=== PATIENT | female | born 1950 | race Caucasian/White ===

== ENCOUNTER → 2017-06-14 | Outpatient (CLI) | payer OTHER, MEDICAID ==
[2012-06-11 09:17] VITALS: BP 138/85
== END ==
LOC: RAD 13:57
PROVIDERS: ATTEND Internal Medicine Cardiovascular Disease
DX: R07.2 Precordial pain (principal)
CPT/HCPCS: 93306

== ENCOUNTER 2017-07-13 19:28 | Inpatient (IN) | payer OTHER, MEDICAID ==
--- NOTE | 2017-07-13 19:51 | DR.GENAD ---
HPI - HPI Comment HPI Comment: PATIENT NOTED A POOL OF BLOOD COME OUT OF THE VAGINAL VAULT WHEN GOT UP FROM A CHAIR. PACIENT TAKES ELIQUIST. BRILLITA AND ASPRIN. HAD CARDIAC CATH 2 WEEKS AGO AND SUSTAIN SWELLING OF LT THIGH, THIS IS STILL SWOLLEN AND PAINFUL. NO TRAUMA. - Complaint/Symptoms Chief Complaint Doctors Comments: VAGINAL HEMORRHAGE, DIZZINESS AND WEAKNESS NOTED TODAY. - Nurses notes reviewed Nurses Notes Review: Yes - Source History Provided: Patient - Mode of Arrival Mode of Arrival: Stretcher - Timing Came on: Suddenly - Duration Duration: Constant Duration: Minutes, Hours - Severity Severity: Moderate PMH - PMH Surgical History: Ortho Surgery - Family History Family Medical History: Cancer, [place], Hypertension ROS - Review of Systems Constitutional: No Symptoms Reported Eyes: No Symptoms Reported ENTM: No Symptoms Reported Respiratoy: Short of Breath (ON EXERTION) Cardiovascular: No Symptoms Reported Gastrointestinal/Abdominal: No Symptoms Reported Genitourinary: No Symptoms Reported Neurological: No Symptoms Reported Musculoskeletal: Leg (BRUISING LEFT UPPER THIGH.) Integumentary: Bruises (LT THIGH) Hematologic/Lymphatic: Easy Bleeding, Easy Bruising Endocrine: No Symptoms Reported All Other Systems: Reviewed and Negative PE - Vital Signs Vitals: Temperature 98.1 F Pulse Rate 80 Respiratory Rate 16 Blood Pressure [Right Arm] 151/59 Blood Pressure [Left Arm] 138/85 Blood Pressure 170/72 O2 Sat by Pulse Oximetry 98 - General Limitations: No Limitations General Appearance: Alert - Head Head Exam: Normal Inspection - Eyes Eye exam: Normal Appearance - ENT ENT Exam: Normal External Ear Exam External Ear Exam: Normal External Inspection TM/Canal Exam: Bilateral Normal Nose Exam: Normal Nose Exam Mouth Exam: Normal Inspection Throat Exam: Normal Inspection - Neck Neck Exam: Trachea Midline - Chest Chest Inspection: Symmetric Chest Wall Rise - Respiratory Respiratory Exam: Normal Lung Sounds Bilat Respiratory Exam: Bilateral Clear to Auscultation - Cardiovascular Cardiovascular Exam: Regular Rate, Normal Rhythm, Normal Heart Sounds - Abdominal Exam Abdominal Exam: Normal Bowel Sounds, Soft. negative: Tenderness - Extremities Extremities Exam: Tenderness (AND SWELLING AND BRUISING LEFT UPPER THIGH.) - Back Back Exam: Normal Inspection - Neurologic Neurological Exam: Alert, Oriented X3 - Psychiatric Psychiatric Exam: Normal Affect, Normal Mood - Skin Skin Exam: Erythema MDM - Differential Diagnosis Differential Diagnosis: VAGINAL BLEEDING, LEFT THIGH PAIN AND SWELLING. Course - Treatment Treatment: SEE ORDERS. - Education/Counseling Education/Counseling: Patient ROR - Labs Reviewed Result Diagrams: 07/13/17 20:01 07/13/17 20:01 Laboratory: WBC 6.8 X10^3/uL (3.6-10.0) 07/13/17 20: RBC 2.85 X10^6/uL (3.5-5.4) L 07/13/17 20:01 Hgb 8.7 g/dL (12.0-16.0) L 07/13/17 20: Hct 25.9 % (36.0-47.0) L 07/13/17 20: MCV 90.6 fL (80.0-100.0) 07/13/17 20: MCH 30.6 pg (27.0-34.0) 07/13/17 20: MCHC 33.8 g/dL (33.0-35.0) 07/13/17 20: RDW 15.6 % (11.6-16.5) 07/13/17 20: Plt Count 276 X10^3/uL (150.0-450.0) 07/13/17 20:01 MPV 7.6 fL (7.4-11.0) 07/13/17 20:01 Neut % (Auto) 71.4 % (42.0-75.0) 07/13/17 20: Lymph % (Auto) 16.2 % (21.0-51.0) L 07/13/17 20: [place] % (Auto) 6.2 % (0.0-13.0) 07/13/17 20: Eos % (Auto) 5.6 % (0.9-2.9) H 07/13/17 20:01 Baso % (Auto) 0.6 % (0.2-1.0) 07/13/17 20:01 Neut # (Auto) 4.8 x10^3/uL (2.2-4.8) 07/13/17 20:01 Lymph # (Auto) 1.1 X10^3/uL (1.3-2.9) L 07/13/17 20:01 [place] # (Auto) 0.4 x10^3/uL (0.3-0.8) 07/13/17 20:01 Eos # (Auto) 0.4 x10^3/uL (0.0-0.2) H 07/13/17 20:01 Baso # (Auto) 0.0 X10^3/uL (0.0-0.1) 07/13/17 20:01 Absolute Nucleated RBC 0.0 /100WBC 07/13/17 20:01 INR Target Range - 07/13/17 20:01 INR 1.31 (0.8-1.3) H 07/13/17 20:01 APTT 40.9 SECONDS (22.9-36.5) H 07/13/17 20:01 PTT Comment - 07/13/17 20:01 Sodium 137 mmol/L (136-145) 07/13/17 20:01 Corrected Sodium 138 mmol/L (136-145) 07/13/17 20:01 Potassium 3.5 mmol/L (3.5-5.1) 07/13/17 20:01 Chloride 101 mmol/L (98-107) 07/13/17 20:01 Carbon Dioxide 28.2 mmol/L (21-32) 07/13/17 20:01 BUN 16 mg/dL (7-18) 07/13/17 20:01 Creatinine 0.98 mg/dL (0.55-1.02) 07/13/17 20:01 Est GFR (MDRD) Af Amer > 60 (>60) 07/13/17 20:01 Est GFR (MDRD) Non-Af > 60 (>60) 07/13/17 20:01 Glucose 138 mg/dL (65-99) H 07/13/17 20:01 Calcium 8.6 mg/dL (8.5-10.1) 07/13/17 20:01 Corrected Calcium 9.5 mg/dL (8.5-10.1) 07/13/17 20:01 Iron 52 ug/dL (50-175) 07/13/17 20:01 Transferrin 193 mg/dL (202-364) L 07/13/17 20:01 Ferritin 219 ng/mL (8-252) 07/13/17 20:01 Total Bilirubin 1.60 mg/dL (0.2-1.0) H 07/13/17 20:01 AST 31 Units/L (15-37) 07/13/17 20:01 ALT 22 Units/L (12-78) 07/13/17 20:01 Alkaline Phosphatase 95 Units/L (46-116) 07/13/17 20:01 Total Protein 6.7 g/dL (6.4-8.2) 07/13/17 20:01 Albumin 2.9 g/dL (3.4-5.0) L 07/13/17 20:01 Globulin 3.8 g/dL (2.5-4.5) 07/13/17 20:01 Albumin/Globulin Ratio 0.8 Ratio (1.1-2.1) L 07/13/17 20:01 Vitamin B12 688 pg/mL (193-986) 07/13/17 20:01 Folate 13.5 ng/mL (>8.6) 07/13/17 20:01 Specimen Type Random urine 07/13/17 22:12 Urine Color Bloody (YELLOW) 07/13/17 22:12 Urine Appearance Slightly hazy (CLEAR) 07/13/17 22:12 Urine pH 6.5 (5.0 - 8.0) 07/13/17 22:12 Ur Specific [place] 1.010 (1.000-1.030) 07/13/17 22:12 Urine Protein 2+ (NEGATIVE) 07/13/17 22:12 Urine Glucose (UA) Negative (NEGATIVE) 07/13/17 22:12 Urine Ketones Negative (NEGATIVE) 07/13/17 22:12 Urine Occult Blood 5+ (NEGATIVE) 07/13/17 22:12 Urine Nitrite Negative (NEGATIVE) 07/13/17 22:12 Urine Bilirubin Negative (NEGATIVE) 07/13/17 22:12 Urine Urobilinogen Normal (NORMAL) 07/13/17 22:12 Ur Leukocyte Esterase Negative (NEGATIVE) 07/13/17 22:12 Urine RBC Tntc /HPF (NONE SEEN) 07/13/17 22:12 Urine WBC None seen /HPF (NONE SEEN) 07/13/17 22:12 Ur Squamous Epith Cells Rare /HPF (NEGATIVE) 07/13/17 22:12 Amorphous Sediment Trace /HPF (NEGATIVE) 07/13/17 22:12 Urine Bacteria Trace /HPF (NEGATIVE) 07/13/17 22:12 Ur Culture Indicated? No/not indicated 07/13/17 22:12 Blood Type O POSITIVE 07/13/17 21:01 Antibody Screen Negative 07/13/17 21:01 - Diagnosis Discharge Problem: Vaginal hemorrhage, Hypercoagulable state, Pain in left thigh, Dizziness - Discharge Plan Disposition: 09 ADMITTED INPATIENT Condition: Stable - Follow ups/Referrals - Instructions
[2017-07-13 20:10] LABS: BASOPHILS % (AUTO) 0.6 % (0.2-1.0); EOSINOPHILS # (AUTO) 0.4 x10^3/uL (0.0-0.2); EOSINOPHILS % (AUTO) 5.6 % (0.9-2.9); HEMATOCRIT 25.9 % (36.0-47.0); HEMOGLOBIN 8.7 g/dL (12.0-16.0); LYMPHOCYTES # (AUTO) 1.1 X10^3/uL (1.3-2.9); LYMPHOCYTES % (AUTO) 16.2 % (21.0-51.0); MEAN CORPUSCULAR HEMOGLOBIN 30.6 pg (27.0-34.0); MEAN CORPUSCULAR HGB CONC 33.8 g/dL (33.0-35.0); MEAN CORPUSCULAR VOLUME 90.6 fL (80.0-100.0); MEAN PLATELET VOLUME 7.6 fL (7.4-11.0); MONOCYTES # (AUTO) 0.4 x10^3/uL (0.3-0.8); MONOCYTES % (AUTO) 6.2 % (0.0-13.0); NEUTROPHILS # (AUTO) 4.8 x10^3/uL (2.2-4.8); NEUTROPHILS % (AUTO) 71.4 % (42.0-75.0); PLATELET COUNT 276 X10^3/uL (150.0-450.0); RED BLOOD COUNT 2.85 X10^6/uL (3.5-5.4); RED CELL DISTRIBUTION WIDTH 15.6 % (11.6-16.5); WHITE BLOOD COUNT 6.8 X10^3/uL (3.6-10.0)
[2017-07-13 20:26] LABS: ALANINE AMINOTRANSFERASE 22 Units/L (12-78); ALBUMIN 2.9 g/dL (3.4-5.0); ALKALINE PHOSPHATASE 95 Units/L (46-116); ASPARTATE AMINO TRANSFERASE 31 Units/L (15-37); BLOOD UREA NITROGEN 16 mg/dL (7-18); CALCIUM 8.6 mg/dL (8.5-10.1); CARBON DIOXIDE 28.2 mmol/L (21-32); CHLORIDE 101 mmol/L (98-107); COR CA(FOR HYPOALB) 9.5 mg/dL (8.5-10.1); COR NA(FOR HYPERGLY) 138 mmol/L (136-145); CREATININE 0.98 mg/dL (0.55-1.02); SODIUM 137 mmol/L (136-145); TOTAL PROTEIN 6.7 g/dL (6.4-8.2); eGFR BLACK RACES > 60 (>60); eGFR NON BLACK RACES > 60 (>60)
[2017-07-13] MEDS: NS 1000 ML 1,000 ML IV SCH (21:12)
[2017-07-13 22:19] LABS: BILIRUBIN,URINE NEGATIVE (NEGATIVE); BLOOD/HEMOGLOBIN,URINE 5+ (NEGATIVE); GLUCOSE, URINE NEGATIVE (NEGATIVE); KETONES,URINE NEGATIVE (NEGATIVE); LEUKOCYTE ESTERASE ,URINE NEGATIVE (NEGATIVE); NITRITES,URINE NEGATIVE (NEGATIVE); PH,URINE 6.5 (5.0 - 8.0); PROTEIN,URINE 2+ (NEGATIVE); UROBILINOGEN,URINE NORMAL (NORMAL)
[2017-07-13 22:28] LABS: APPEARANCE,URINE SLIGHTLY HAZY (CLEAR); COLOR,URINE BLOODY (YELLOW); RBC,URINE TNTC /HPF (NONE SEEN)
[2017-07-13 22:29] LABS: AMORPHOUS SEDIMENT,UR TRACE /HPF (NEGATIVE); BACTERIA,URINE TRACE /HPF (NEGATIVE); SQUAMOUS EPITHELIAL CELL,UR RARE /HPF (NEGATIVE)
[2017-07-13] MEDS ORDERED: ZOFRAN INJ 4 MG VIAL IVP ONE (22:50)
[2017-07-13] MEDS ORDERED: DEMEROL INJ IVP ONE (22:50)
[2017-07-13] MEDS ORDERED: ZOFRAN INJ 4 MG VIAL ONE (22:52)
[2017-07-13] MEDS ORDERED: DEMEROL INJ ONE (22:53)
[2017-07-13] MEDS ORDERED: DEMEROL INJ IVP PRN (23:06)
[2017-07-14 00:43] VITALS: BMI 39.6
[2017-07-14 05:20] LABS: BASOPHILS # (AUTO) 0.1 X10^3/uL (0.0-0.1); BASOPHILS % (AUTO) 1.3 % (0.2-1.0); EOSINOPHILS # (AUTO) 0.5 x10^3/uL (0.0-0.2); EOSINOPHILS % (AUTO) 7.6 % (0.9-2.9); HEMATOCRIT 24.6 % (36.0-47.0); HEMOGLOBIN 8.3 g/dL (12.0-16.0); LYMPHOCYTES # (AUTO) 1.4 X10^3/uL (1.3-2.9); MEAN CORPUSCULAR HGB CONC 33.9 g/dL (33.0-35.0); MEAN CORPUSCULAR VOLUME 91.3 fL (80.0-100.0); MEAN PLATELET VOLUME 7.9 fL (7.4-11.0); MONOCYTES # (AUTO) 0.5 x10^3/uL (0.3-0.8); MONOCYTES % (AUTO) 8.4 % (0.0-13.0); NEUTROPHILS # (AUTO) 3.9 x10^3/uL (2.2-4.8); NEUTROPHILS % (AUTO) 60.7 % (42.0-75.0); PLATELET COUNT 274 X10^3/uL (150.0-450.0); RED BLOOD COUNT 2.69 X10^6/uL (3.5-5.4); RED CELL DISTRIBUTION WIDTH 15.6 % (11.6-16.5); WHITE BLOOD COUNT 6.4 X10^3/uL (3.6-10.0)
[2017-07-14 05:21] LABS: ALANINE AMINOTRANSFERASE 20 Units/L (12-78); ALBUMIN 2.7 g/dL (3.4-5.0); ALKALINE PHOSPHATASE 85 Units/L (46-116); ASPARTATE AMINO TRANSFERASE 25 Units/L (15-37); BLOOD UREA NITROGEN 15 mg/dL (7-18); CARBON DIOXIDE 31.3 mmol/L (21-32); CHLORIDE 102 mmol/L (98-107); CREATININE 0.79 mg/dL (0.55-1.02); SODIUM 139 mmol/L (136-145); TOTAL PROTEIN 6.4 g/dL (6.4-8.2); eGFR BLACK RACES > 60 (>60); eGFR NON BLACK RACES > 60 (>60)
[2017-07-14] MEDS: ZOFRAN INJ 4 MG VIAL IVP PRN (07:00)
[2017-07-14] MEDS: NS 1000 ML 1,000 ML IV SCH ×2 (09:52→23:30)
[2017-07-14] MEDS ORDERED: ZESTRIL TAB 20 MG ONE (10:09)
[2017-07-14] MEDS: ZESTRIL TAB 20 MG PO SCH (10:22)
[2017-07-14] MEDS: BRILINTA PO SCH ×2 (10:22→20:52)
[2017-07-14] MEDS: ELIQUIS PO SCH ×2 (10:22→20:52)
[2017-07-14] MEDS: CARDIZEM CD 180 MG PO SCH (10:22)
[2017-07-14] MEDS: DILAUDID INJ IVP PRN ×2 (10:24→20:52)
[2017-07-14] MEDS ORDERED: STERILE WATER IRRIGATION IR ONE (11:30)
--- NOTE | 2017-07-14 13:47 | US ---
History: Vaginal bleeding for 1 day Study: Transabdominal ultrasound of the pelvis Comparison: None Findings: Uterus measures 7 x 5 x 5 cm without focal mass. The endometrium measures 3 mm thickness. T he ovaries are normal in size without mass or cyst. There is no free fluid. Impression: Negative Reported By:
[2017-07-14] MEDS ORDERED: K-DUR TAB 20 MEQ PO ONE (15:43)
[2017-07-14] MEDS: K-DUR TAB 20 MEQ PO SCH ×2 (15:50→21:00)
[2017-07-14] MEDS: LOPRESSOR TAB 50 MG PO SCH (20:51)
[2017-07-15] MEDS: DILAUDID INJ IVP PRN ×4 (01:33→21:10)
[2017-07-15 07:12] LABS: BASOPHILS # (AUTO) 0.1 X10^3/uL (0.0-0.1); BASOPHILS % (AUTO) 1.6 % (0.2-1.0); EOSINOPHILS # (AUTO) 0.2 x10^3/uL (0.0-0.2); EOSINOPHILS % (AUTO) 3.4 % (0.9-2.9); HEMATOCRIT 27.5 % (36.0-47.0); HEMOGLOBIN 8.9 g/dL (12.0-16.0); LYMPHOCYTES # (AUTO) 0.8 X10^3/uL (1.3-2.9); LYMPHOCYTES % (AUTO) 11.1 % (21.0-51.0); MEAN CORPUSCULAR HEMOGLOBIN 30.5 pg (27.0-34.0); MEAN CORPUSCULAR HGB CONC 32.5 g/dL (33.0-35.0); MEAN CORPUSCULAR VOLUME 93.9 fL (80.0-100.0); MEAN PLATELET VOLUME 7.6 fL (7.4-11.0); MONOCYTES # (AUTO) 0.4 x10^3/uL (0.3-0.8); MONOCYTES % (AUTO) 5.6 % (0.0-13.0); NEUTROPHILS # (AUTO) 5.8 x10^3/uL (2.2-4.8); NEUTROPHILS % (AUTO) 78.3 % (42.0-75.0); PLATELET COUNT 281 X10^3/uL (150.0-450.0); RED BLOOD COUNT 2.93 X10^6/uL (3.5-5.4); RED CELL DISTRIBUTION WIDTH 15.8 % (11.6-16.5); WHITE BLOOD COUNT 7.4 X10^3/uL (3.6-10.0)
[2017-07-15 07:28] LABS: ALANINE AMINOTRANSFERASE 20 Units/L (12-78); ALBUMIN 2.8 g/dL (3.4-5.0); ALKALINE PHOSPHATASE 93 Units/L (46-116); ASPARTATE AMINO TRANSFERASE 26 Units/L (15-37); BLOOD UREA NITROGEN 13 mg/dL (7-18); CARBON DIOXIDE 25.8 mmol/L (21-32); CHLORIDE 102 mmol/L (98-107); COR NA(FOR HYPERGLY) 136 mmol/L (136-145); SODIUM 136 mmol/L (136-145); TOTAL PROTEIN 6.7 g/dL (6.4-8.2); eGFR BLACK RACES > 60 (>60); eGFR NON BLACK RACES > 60 (>60)
[2017-07-15] MEDS ORDERED: ZESTRIL TAB 20 MG ONE (09:03)
[2017-07-15] MEDS: ELIQUIS PO SCH ×2 (09:11→21:10)
[2017-07-15] MEDS: K-DUR TAB 20 MEQ PO SCH ×2 (09:11→21:10)
[2017-07-15] MEDS: ZESTRIL TAB 20 MG PO SCH (09:11)
[2017-07-15] MEDS: CARDIZEM CD 180 MG PO SCH (09:11)
[2017-07-15] MEDS: BRILINTA PO SCH ×3 (09:12→21:10)
[2017-07-15] MEDS: LOPRESSOR TAB 50 MG PO SCH ×2 (09:13→21:10)
[2017-07-15] MEDS: NS 1000 ML 1,000 ML IV SCH (15:03)
[2017-07-15] MEDS: ZOFRAN INJ 4 MG VIAL IVP PRN (18:31)
[2017-07-16] MEDS: DILAUDID INJ IVP PRN ×2 (02:55→19:40)
[2017-07-16] MEDS: NS 1000 ML 1,000 ML IV SCH (05:00)
[2017-07-16 06:31] LABS: BASOPHILS # (AUTO) 0.1 X10^3/uL (0.0-0.1); BASOPHILS % (AUTO) 1.2 % (0.2-1.0); EOSINOPHILS # (AUTO) 0.3 x10^3/uL (0.0-0.2); EOSINOPHILS % (AUTO) 3.1 % (0.9-2.9); HEMATOCRIT 23.5 % (36.0-47.0); LYMPHOCYTES # (AUTO) 1.2 X10^3/uL (1.3-2.9); LYMPHOCYTES % (AUTO) 13.9 % (21.0-51.0); MEAN CORPUSCULAR HEMOGLOBIN 31.1 pg (27.0-34.0); MEAN CORPUSCULAR HGB CONC 34.1 g/dL (33.0-35.0); MEAN CORPUSCULAR VOLUME 91.3 fL (80.0-100.0); MEAN PLATELET VOLUME 7.4 fL (7.4-11.0); MONOCYTES # (AUTO) 0.5 x10^3/uL (0.3-0.8); MONOCYTES % (AUTO) 6.3 % (0.0-13.0); NEUTROPHILS # (AUTO) 6.2 x10^3/uL (2.2-4.8); NEUTROPHILS % (AUTO) 75.5 % (42.0-75.0); PLATELET COUNT 285 X10^3/uL (150.0-450.0); RED BLOOD COUNT 2.58 X10^6/uL (3.5-5.4); RED CELL DISTRIBUTION WIDTH 15.7 % (11.6-16.5); WHITE BLOOD COUNT 8.3 X10^3/uL (3.6-10.0)
[2017-07-16 06:39] LABS: ALANINE AMINOTRANSFERASE 20 Units/L (12-78); ALBUMIN 2.8 g/dL (3.4-5.0); ALKALINE PHOSPHATASE 85 Units/L (46-116); ASPARTATE AMINO TRANSFERASE 24 Units/L (15-37); BLOOD UREA NITROGEN 13 mg/dL (7-18); CALCIUM 8.5 mg/dL (8.5-10.1); CARBON DIOXIDE 27.3 mmol/L (21-32); CHLORIDE 102 mmol/L (98-107); COR CA(FOR HYPOALB) 9.5 mg/dL (8.5-10.1); CREATININE 0.78 mg/dL (0.55-1.02); SODIUM 136 mmol/L (136-145); TOTAL PROTEIN 6.6 g/dL (6.4-8.2); eGFR BLACK RACES > 60 (>60); eGFR NON BLACK RACES > 60 (>60)
--- NOTE | 2017-07-16 08:03 | RAD ---
Examination: PA chest History: Weakness Comparison 06/10/2012 Findings: Cardiomegaly with essentially clear lungs and pleural spaces. There is no evidence for pneu monia, pulmonary edema or large pleural effusion. Impression: Mild cardiac enlargement, no acute pulmonary or pleural lesion demonstrated. Reported By:
[2017-07-16] MEDS ORDERED: ZESTRIL TAB 20 MG ONE (08:40)
[2017-07-16] MEDS: LOPRESSOR TAB 50 MG PO SCH ×2 (08:49→21:31)
[2017-07-16] MEDS: ZESTRIL TAB 20 MG PO SCH (08:49)
[2017-07-16] MEDS: CARDIZEM CD 180 MG PO SCH (08:49)
[2017-07-16] MEDS: K-DUR TAB 20 MEQ PO SCH ×2 (08:49→21:31)
[2017-07-16] MEDS ORDERED: LASIX IVP ONE (11:10)
[2017-07-16 16:47] LABS: HEMATOCRIT 20.1 % (36.0-47.0)
[2017-07-16 16:52] LABS: HEMOGLOBIN 6.7 g/dL (12.0-16.0)
[2017-07-16] MEDS ORDERED: TYLENOL 325 MG TAB PO ONE ×2 (16:56→17:01)
[2017-07-16] MEDS ORDERED: NS 500 ML IV 500 ML IV ONE (16:56)
[2017-07-16] MEDS ORDERED: BENADRYL INJ 50 MG VIAL ONE (16:57)
[2017-07-16] MEDS: BRILINTA PO SCH ×2 (17:18→21:31)
[2017-07-16 22:26] LABS: HEMATOCRIT 25.7 % (36.0-47.0); HEMOGLOBIN 9.1 g/dL (12.0-16.0)
[2017-07-17] MEDS: DILAUDID INJ IVP PRN ×3 (02:00→23:40)
[2017-07-17 06:16] LABS: BASOPHILS # (AUTO) 0.1 X10^3/uL (0.0-0.1); BASOPHILS % (AUTO) 1.3 % (0.2-1.0); EOSINOPHILS # (AUTO) 0.5 x10^3/uL (0.0-0.2); EOSINOPHILS % (AUTO) 5.2 % (0.9-2.9); HEMATOCRIT 25.6 % (36.0-47.0); LYMPHOCYTES # (AUTO) 1.5 X10^3/uL (1.3-2.9); LYMPHOCYTES % (AUTO) 15.7 % (21.0-51.0); MEAN CORPUSCULAR HEMOGLOBIN 31.5 pg (27.0-34.0); MEAN CORPUSCULAR HGB CONC 35.1 g/dL (33.0-35.0); MEAN CORPUSCULAR VOLUME 89.9 fL (80.0-100.0); MEAN PLATELET VOLUME 7.8 fL (7.4-11.0); MONOCYTES # (AUTO) 0.6 x10^3/uL (0.3-0.8); MONOCYTES % (AUTO) 6.4 % (0.0-13.0); NEUTROPHILS # (AUTO) 6.8 x10^3/uL (2.2-4.8); NEUTROPHILS % (AUTO) 71.4 % (42.0-75.0); PLATELET COUNT 270 X10^3/uL (150.0-450.0); RED BLOOD COUNT 2.84 X10^6/uL (3.5-5.4); RED CELL DISTRIBUTION WIDTH 16.1 % (11.6-16.5); WHITE BLOOD COUNT 9.5 X10^3/uL (3.6-10.0)
[2017-07-17 06:27] LABS: ALANINE AMINOTRANSFERASE 18 Units/L (12-78); ALBUMIN 2.7 g/dL (3.4-5.0); ALKALINE PHOSPHATASE 86 Units/L (46-116); ASPARTATE AMINO TRANSFERASE 27 Units/L (15-37); BLOOD UREA NITROGEN 17 mg/dL (7-18); CALCIUM 8.2 mg/dL (8.5-10.1); CARBON DIOXIDE 25.6 mmol/L (21-32); CHLORIDE 102 mmol/L (98-107); COR CA(FOR HYPOALB) 9.2 mg/dL (8.5-10.1); CREATININE 0.87 mg/dL (0.55-1.02); SODIUM 135 mmol/L (136-145); TOTAL PROTEIN 6.5 g/dL (6.4-8.2); eGFR BLACK RACES > 60 (>60); eGFR NON BLACK RACES > 60 (>60)
[2017-07-17] MEDS ORDERED: ZESTRIL TAB 20 MG ONE ×2 (07:47→10:26)
[2017-07-17] MEDS ORDERED: PROVERA PO ONE (09:32)
[2017-07-17] MEDS: PROVERA PO SCH (09:35)
[2017-07-17] MEDS: K-DUR TAB 20 MEQ PO SCH ×2 (09:36→20:52)
[2017-07-17] MEDS: CARDIZEM CD 180 MG PO SCH (09:37)
[2017-07-17] MEDS: NS 1000 ML 1,000 ML IV SCH ×2 (09:39→14:06)
[2017-07-17] MEDS: LOPRESSOR TAB 50 MG PO SCH ×2 (09:39→20:52)
[2017-07-17] MEDS: BRILINTA PO SCH ×2 (09:39→20:52)
[2017-07-17] MEDS: ZESTRIL TAB 20 MG PO SCH (10:32)
[2017-07-17] MEDS: ELIQUIS PO SCH (10:33)
[2017-07-17 16:21] LABS: HEMATOCRIT 22.9 % (36.0-47.0)
--- NOTE | 2017-07-17 16:33 | RAD ---
HISTORY: Left knee pain status post fall. Study: Three views of the left knee. Comparison: None. Findings: No acute cortical disruption or dislocation can be identified. No significant soft tissue swelling o r injury can be seen. IMPRESSION: No acute osseous abnormality. Reported By:
[2017-07-18 06:29] LABS: BASOPHILS # (AUTO) 0.1 X10^3/uL (0.0-0.1); BASOPHILS % (AUTO) 1.3 % (0.2-1.0); EOSINOPHILS # (AUTO) 0.6 x10^3/uL (0.0-0.2); EOSINOPHILS % (AUTO) 5.9 % (0.9-2.9); HEMATOCRIT 22.8 % (36.0-47.0); HEMOGLOBIN 8.1 g/dL (12.0-16.0); LYMPHOCYTES # (AUTO) 2.2 X10^3/uL (1.3-2.9); LYMPHOCYTES % (AUTO) 20.7 % (21.0-51.0); MEAN CORPUSCULAR HEMOGLOBIN 31.9 pg (27.0-34.0); MEAN CORPUSCULAR HGB CONC 35.6 g/dL (33.0-35.0); MEAN CORPUSCULAR VOLUME 89.6 fL (80.0-100.0); MEAN PLATELET VOLUME 7.8 fL (7.4-11.0); MONOCYTES # (AUTO) 0.6 x10^3/uL (0.3-0.8); MONOCYTES % (AUTO) 5.8 % (0.0-13.0); NEUTROPHILS # (AUTO) 7.1 x10^3/uL (2.2-4.8); NEUTROPHILS % (AUTO) 66.3 % (42.0-75.0); PLATELET COUNT 262 X10^3/uL (150.0-450.0); RED BLOOD COUNT 2.54 X10^6/uL (3.5-5.4); RED CELL DISTRIBUTION WIDTH 16.4 % (11.6-16.5); WHITE BLOOD COUNT 10.7 X10^3/uL (3.6-10.0)
[2017-07-18 06:38] LABS: BLOOD UREA NITROGEN 13 mg/dL (7-18); CALCIUM 8.2 mg/dL (8.5-10.1); CARBON DIOXIDE 27.1 mmol/L (21-32); CHLORIDE 103 mmol/L (98-107); CREATININE 0.82 mg/dL (0.55-1.02); SODIUM 138 mmol/L (136-145); eGFR BLACK RACES > 60 (>60); eGFR NON BLACK RACES > 60 (>60)
[2017-07-18] MEDS ORDERED: ZESTRIL TAB 20 MG ONE (08:24)
[2017-07-18] MEDS: ZESTRIL TAB 20 MG PO SCH (08:33)
[2017-07-18] MEDS: CARDIZEM CD 180 MG PO SCH (08:34)
[2017-07-18] MEDS: K-DUR TAB 20 MEQ PO SCH ×2 (08:34→21:11)
[2017-07-18] MEDS: LOPRESSOR TAB 50 MG PO SCH (08:34)
[2017-07-18] MEDS: BRILINTA PO SCH ×2 (08:35→21:11)
[2017-07-18] MEDS: PROVERA PO SCH (08:35)
[2017-07-18] MEDS ORDERED: CARDIZEM CD 180 MG PO SCH (10:31)
[2017-07-18] MEDS: DILAUDID INJ IVP PRN (21:14)
[2017-07-19 05:34] LABS: BASOPHILS # (AUTO) 0.1 X10^3/uL (0.0-0.1); BASOPHILS % (AUTO) 1.1 % (0.2-1.0); EOSINOPHILS # (AUTO) 0.4 x10^3/uL (0.0-0.2); EOSINOPHILS % (AUTO) 4.2 % (0.9-2.9); HEMATOCRIT 22.3 % (36.0-47.0); HEMOGLOBIN 7.8 g/dL (12.0-16.0); LYMPHOCYTES # (AUTO) 1.7 X10^3/uL (1.3-2.9); LYMPHOCYTES % (AUTO) 16.7 % (21.0-51.0); MEAN CORPUSCULAR HEMOGLOBIN 32.1 pg (27.0-34.0); MEAN CORPUSCULAR HGB CONC 34.9 g/dL (33.0-35.0); MEAN PLATELET VOLUME 7.7 fL (7.4-11.0); MONOCYTES # (AUTO) 0.6 x10^3/uL (0.3-0.8); NEUTROPHILS # (AUTO) 7.5 x10^3/uL (2.2-4.8); PLATELET COUNT 255 X10^3/uL (150.0-450.0); RED BLOOD COUNT 2.42 X10^6/uL (3.5-5.4); RED CELL DISTRIBUTION WIDTH 16.9 % (11.6-16.5); WHITE BLOOD COUNT 10.4 X10^3/uL (3.6-10.0)
[2017-07-19 05:52] LABS: ALANINE AMINOTRANSFERASE 20 Units/L (12-78); ALBUMIN 2.8 g/dL (3.4-5.0); ALKALINE PHOSPHATASE 74 Units/L (46-116); ASPARTATE AMINO TRANSFERASE 21 Units/L (15-37); BLOOD UREA NITROGEN 12 mg/dL (7-18); CALCIUM 8.6 mg/dL (8.5-10.1); CARBON DIOXIDE 26.6 mmol/L (21-32); CHLORIDE 103 mmol/L (98-107); COR CA(FOR HYPOALB) 9.6 mg/dL (8.5-10.1); CREATININE 0.89 mg/dL (0.55-1.02); SODIUM 137 mmol/L (136-145); TOTAL PROTEIN 6.5 g/dL (6.4-8.2); eGFR BLACK RACES > 60 (>60); eGFR NON BLACK RACES > 60 (>60)
[2017-07-19 06:06] LABS: ANISOCYTOSIS SLIGHT; PLATELET MORPHOLOGY COMMENT NORMAL (NORMAL)
[2017-07-19] MEDS ORDERED: ZESTRIL TAB 20 MG ONE (08:48)
[2017-07-19] MEDS: CARDIZEM CD 360 MG PO SCH (09:04)
[2017-07-19] MEDS: K-DUR TAB 20 MEQ PO SCH ×2 (09:05→20:46)
[2017-07-19] MEDS: BRILINTA PO SCH ×2 (09:05→20:46)
[2017-07-19] MEDS: ZESTRIL TAB 20 MG PO SCH (09:05)
[2017-07-19] MEDS: PROVERA PO SCH (09:05)
[2017-07-19] MEDS ORDERED: NS 500 ML IV 500 ML IV ONE (09:14)
[2017-07-19] MEDS ORDERED: DILAUDID INJ IVP PRN (09:16)
[2017-07-19] MEDS: NORCO 7.5/325 MG TAB PO PRN ×2 (11:14→20:46)
[2017-07-19] MEDS ORDERED: NS 250 ML IV 250 ML IV ONE ×2 (13:52→21:37)
[2017-07-20 06:11] LABS: BASOPHILS # (AUTO) 0.1 X10^3/uL (0.0-0.1); BASOPHILS % (AUTO) 1.1 % (0.2-1.0); EOSINOPHILS # (AUTO) 0.7 x10^3/uL (0.0-0.2); EOSINOPHILS % (AUTO) 8.5 % (0.9-2.9); HEMATOCRIT 28.9 % (36.0-47.0); LYMPHOCYTES # (AUTO) 1.8 X10^3/uL (1.3-2.9); LYMPHOCYTES % (AUTO) 21.5 % (21.0-51.0); MEAN CORPUSCULAR HEMOGLOBIN 31.7 pg (27.0-34.0); MEAN CORPUSCULAR HGB CONC 34.9 g/dL (33.0-35.0); MEAN CORPUSCULAR VOLUME 90.9 fL (80.0-100.0); MEAN PLATELET VOLUME 7.8 fL (7.4-11.0); MONOCYTES # (AUTO) 0.5 x10^3/uL (0.3-0.8); MONOCYTES % (AUTO) 6.1 % (0.0-13.0); NEUTROPHILS # (AUTO) 5.3 x10^3/uL (2.2-4.8); NEUTROPHILS % (AUTO) 62.8 % (42.0-75.0); PLATELET COUNT 242 X10^3/uL (150.0-450.0); RED BLOOD COUNT 3.18 X10^6/uL (3.5-5.4); RED CELL DISTRIBUTION WIDTH 15.6 % (11.6-16.5); WHITE BLOOD COUNT 8.4 X10^3/uL (3.6-10.0)
[2017-07-20 06:25] LABS: HEMOGLOBIN 10.1 g/dL (12.0-16.0)
[2017-07-20 06:47] LABS: ALANINE AMINOTRANSFERASE 21 Units/L (12-78); ALBUMIN 2.8 g/dL (3.4-5.0); ALKALINE PHOSPHATASE 78 Units/L (46-116); ASPARTATE AMINO TRANSFERASE 25 Units/L (15-37); BLOOD UREA NITROGEN 12 mg/dL (7-18); CALCIUM 8.3 mg/dL (8.5-10.1); CARBON DIOXIDE 25.9 mmol/L (21-32); CHLORIDE 102 mmol/L (98-107); COR CA(FOR HYPOALB) 9.3 mg/dL (8.5-10.1); CREATININE 0.93 mg/dL (0.55-1.02); SODIUM 136 mmol/L (136-145); TOTAL PROTEIN 6.6 g/dL (6.4-8.2); eGFR BLACK RACES > 60 (>60); eGFR NON BLACK RACES > 60 (>60)
[2017-07-20] MEDS: NORCO 7.5/325 MG TAB PO PRN (08:39)
[2017-07-20] MEDS ORDERED: ZESTRIL TAB 20 MG ONE (08:43)
[2017-07-20] MEDS: K-DUR TAB 20 MEQ PO SCH ×2 (08:53→21:05)
[2017-07-20] MEDS: ZESTRIL TAB 20 MG PO SCH (08:53)
[2017-07-20] MEDS: CARDIZEM CD 360 MG PO SCH (08:53)
[2017-07-20] MEDS: PROVERA PO SCH (08:53)
[2017-07-20] MEDS: BRILINTA PO SCH ×2 (08:53→21:05)
[2017-07-20] MEDS: PERCOCET TAB 5/325 MG PO PRN ×2 (14:25→22:27)
[2017-07-20] MEDS: NS 1000 ML 1,000 ML IV SCH (17:50)
[2017-07-21] MEDS ORDERED: ZESTRIL TAB 20 MG ONE (08:22)
[2017-07-21] MEDS: CARDIZEM CD 360 MG PO SCH (08:33)
[2017-07-21] MEDS: BRILINTA PO SCH (08:33)
[2017-07-21] MEDS: K-DUR TAB 20 MEQ PO SCH (08:33)
[2017-07-21] MEDS: PROVERA PO SCH (08:34)
[2017-07-21] MEDS: ZESTRIL TAB 20 MG PO SCH (08:34)
[2017-07-21] MEDS ORDERED: XANAX PO PRN (09:08)
[2017-07-21] MEDS ORDERED: LEXAPRO ONE (09:53)
[2017-07-21] MEDS ORDERED: K-DUR TAB 20 MEQ PO SCH (10:00)
[2017-07-21] MEDS ORDERED: LEXAPRO PO SCH (10:00)
[2017-07-21] MEDS ORDERED: APRESOLINE TAB 25 MG PO SCH (10:00)
[2017-07-21] MEDS: PERCOCET TAB 5/325 MG PO PRN (10:01)
[2017-07-21 10:07] VITALS: BP 185/79
[2017-07-22] MEDS ORDERED: K-DUR TAB 20 MEQ PO SCH (09:00)
== END 2017-07-21 13:45 | disposition swing bed (61) | DRG 760 ==
LOC: ER 19:30 → ICU 23:00 → OBSVTOIN 07-16 16:30 → MED/SURG 07-18 13:55
PROVIDERS: ADMIT Internal Medicine; ATTEND Obstetrics & Gynecology Obstetrics
PROC: 30233N1 Transfusion of Nonautologous Red Blood Cells into Peripheral Vein, Percutaneous Approach (ICD-10-PCS; principal; 2017-07-16)
PROC: 30233N1 Transfusion of Nonautologous Red Blood Cells into Peripheral Vein, Percutaneous Approach (ICD-10-PCS; 2017-07-19)
PROC: 30233N1 Transfusion of Nonautologous Red Blood Cells into Peripheral Vein, Percutaneous Approach (ICD-10-PCS; 2017-07-20)
DX: N93.8 Other specified abnormal uterine and vaginal bleeding (principal); L76.32 Postprocedural hematoma of skin and subcutaneous tissue following other procedure; D62 Acute posthemorrhagic anemia; R42 Dizziness and giddiness; R06.02 Shortness of breath; R79.1 Abnormal coagulation profile; I25.10 Atherosclerotic heart disease of native coronary artery without angina pectoris; I10 Essential (primary) hypertension; I48.91 Unspecified atrial fibrillation; E87.6 Hypokalemia; Z98.890 Other specified postprocedural states; M79.652 Pain in left thigh; Z95.5 Presence of coronary angioplasty implant and graft; R26.89 Other abnormalities of gait and mobility
CPT/HCPCS: 36415; 36430; 71045; 73560; 76856; 80048; 80053; 81001; 82607; 82728; 82746; 83540; 83735; 84466; 85014; 85018; 85025; 85610; 85730; 86850; 86900; 86901; 86922; 96365; 96367; 96372; 96374; 96375; 97535; 99283; 99284; A4217; A4222; P9016; G0378; J1170; J1200; J2175; J2405

== ENCOUNTER 2017-07-21 13:45 | Inpatient (IN) | payer OTHER, MEDICAID ==
[2017-07-21] MEDS ORDERED: XANAX PO PRN (15:53)
[2017-07-21] MEDS ORDERED: TYLENOL 325 MG TAB PO PRN (15:54)
[2017-07-21] MEDS ORDERED: ZOFRAN TAB 4 MG PO PRN (15:54)
[2017-07-21] MEDS: BRILINTA PO SCH (20:29)
[2017-07-21] MEDS: PERCOCET TAB 5/325 MG PO PRN (20:35)
[2017-07-21] MEDS: APRESOLINE TAB 25 MG PO SCH (22:00)
[2017-07-22 06:22] LABS: BASOPHILS # (AUTO) 0.1 X10^3/uL (0.0-0.1); BASOPHILS % (AUTO) 1.2 % (0.2-1.0); EOSINOPHILS # (AUTO) 0.4 x10^3/uL (0.0-0.2); EOSINOPHILS % (AUTO) 5.4 % (0.9-2.9); HEMATOCRIT 32.4 % (36.0-47.0); HEMOGLOBIN 11.1 g/dL (12.0-16.0); LYMPHOCYTES # (AUTO) 0.8 X10^3/uL (1.3-2.9); MEAN CORPUSCULAR HEMOGLOBIN 31.7 pg (27.0-34.0); MEAN CORPUSCULAR HGB CONC 34.4 g/dL (33.0-35.0); MEAN CORPUSCULAR VOLUME 92.3 fL (80.0-100.0); MEAN PLATELET VOLUME 7.8 fL (7.4-11.0); MONOCYTES # (AUTO) 0.5 x10^3/uL (0.3-0.8); MONOCYTES % (AUTO) 6.2 % (0.0-13.0); NEUTROPHILS % (AUTO) 77.2 % (42.0-75.0); PLATELET COUNT 250 X10^3/uL (150.0-450.0); RED BLOOD COUNT 3.51 X10^6/uL (3.5-5.4); RED CELL DISTRIBUTION WIDTH 16.5 % (11.6-16.5); WHITE BLOOD COUNT 7.8 X10^3/uL (3.6-10.0)
[2017-07-22] MEDS: APRESOLINE TAB 25 MG PO SCH ×3 (06:28→22:00)
[2017-07-22 06:31] LABS: ALANINE AMINOTRANSFERASE 26 Units/L (12-78); ALBUMIN 2.9 g/dL (3.4-5.0); ALKALINE PHOSPHATASE 89 Units/L (46-116); ASPARTATE AMINO TRANSFERASE 25 Units/L (15-37); BLOOD UREA NITROGEN 22 mg/dL (7-18); CALCIUM 8.5 mg/dL (8.5-10.1); CARBON DIOXIDE 24.7 mmol/L (21-32); CHLORIDE 99 mmol/L (98-107); COR CA(FOR HYPOALB) 9.4 mg/dL (8.5-10.1); CREATININE 1.21 mg/dL (0.55-1.02); SODIUM 132 mmol/L (136-145); TOTAL PROTEIN 6.8 g/dL (6.4-8.2); eGFR BLACK RACES 57 (>60); eGFR NON BLACK RACES 47 (>60)
[2017-07-22] MEDS ORDERED: LEXAPRO ONE (09:03)
[2017-07-22] MEDS ORDERED: ZESTRIL TAB 20 MG ONE (09:03)
[2017-07-22] MEDS: CARDIZEM CD 180 MG PO SCH (09:05)
[2017-07-22] MEDS: BRILINTA PO SCH ×2 (09:05→20:17)
[2017-07-22] MEDS: LEXAPRO PO SCH (09:06)
[2017-07-22] MEDS: ZESTRIL TAB 20 MG PO SCH (09:06)
[2017-07-22] MEDS: PROVERA PO SCH (09:06)
[2017-07-22] MEDS: K-DUR TAB 20 MEQ PO SCH (09:06)
[2017-07-22] MEDS: PERCOCET TAB 5/325 MG PO PRN (09:25)
[2017-07-23] MEDS: APRESOLINE TAB 25 MG PO SCH ×3 (05:38→21:36)
[2017-07-23 05:45] LABS: BASOPHILS # (AUTO) 0.1 X10^3/uL (0.0-0.1); EOSINOPHILS # (AUTO) 0.4 x10^3/uL (0.0-0.2); EOSINOPHILS % (AUTO) 4.7 % (0.9-2.9); HEMATOCRIT 30.7 % (36.0-47.0); HEMOGLOBIN 10.6 g/dL (12.0-16.0); LYMPHOCYTES # (AUTO) 0.9 X10^3/uL (1.3-2.9); LYMPHOCYTES % (AUTO) 11.3 % (21.0-51.0); MEAN CORPUSCULAR HEMOGLOBIN 32.2 pg (27.0-34.0); MEAN CORPUSCULAR HGB CONC 34.6 g/dL (33.0-35.0); MEAN CORPUSCULAR VOLUME 93.2 fL (80.0-100.0); MEAN PLATELET VOLUME 7.8 fL (7.4-11.0); MONOCYTES # (AUTO) 0.5 x10^3/uL (0.3-0.8); MONOCYTES % (AUTO) 6.4 % (0.0-13.0); NEUTROPHILS # (AUTO) 6.2 x10^3/uL (2.2-4.8); NEUTROPHILS % (AUTO) 76.6 % (42.0-75.0); PLATELET COUNT 241 X10^3/uL (150.0-450.0); RED CELL DISTRIBUTION WIDTH 16.4 % (11.6-16.5); WHITE BLOOD COUNT 8.1 X10^3/uL (3.6-10.0)
[2017-07-23 06:06] LABS: ALANINE AMINOTRANSFERASE 25 Units/L (12-78); ALBUMIN 2.7 g/dL (3.4-5.0); ALKALINE PHOSPHATASE 84 Units/L (46-116); ASPARTATE AMINO TRANSFERASE 26 Units/L (15-37); BLOOD UREA NITROGEN 25 mg/dL (7-18); CALCIUM 8.3 mg/dL (8.5-10.1); CARBON DIOXIDE 21.9 mmol/L (21-32); CHLORIDE 99 mmol/L (98-107); COR CA(FOR HYPOALB) 9.3 mg/dL (8.5-10.1); CREATININE 1.23 mg/dL (0.55-1.02); SODIUM 132 mmol/L (136-145); TOTAL PROTEIN 6.6 g/dL (6.4-8.2); eGFR BLACK RACES 56 (>60); eGFR NON BLACK RACES 46 (>60)
[2017-07-23] MEDS ORDERED: ZESTRIL TAB 20 MG ONE (08:41)
[2017-07-23] MEDS ORDERED: LEXAPRO ONE (08:41)
[2017-07-23] MEDS: BRILINTA PO SCH ×2 (08:53→20:37)
[2017-07-23] MEDS: CARDIZEM CD 180 MG PO SCH (08:53)
[2017-07-23] MEDS: K-DUR TAB 20 MEQ PO SCH (08:53)
[2017-07-23] MEDS: PERCOCET TAB 5/325 MG PO PRN ×2 (08:54→20:37)
[2017-07-23] MEDS: PROVERA PO SCH (08:54)
[2017-07-23] MEDS: ZESTRIL TAB 20 MG PO SCH (08:54)
[2017-07-23] MEDS: LEXAPRO PO SCH (08:54)
[2017-07-23] MEDS ORDERED: NS 1000 ML 1,000 ML IV ONE (09:11)
[2017-07-23 17:35] VITALS: BMI 37.3
[2017-07-24 05:22] LABS: BASOPHILS # (AUTO) 0.1 X10^3/uL (0.0-0.1); BASOPHILS % (AUTO) 1.4 % (0.2-1.0); EOSINOPHILS # (AUTO) 0.4 x10^3/uL (0.0-0.2); EOSINOPHILS % (AUTO) 5.3 % (0.9-2.9); HEMATOCRIT 30.8 % (36.0-47.0); HEMOGLOBIN 10.3 g/dL (12.0-16.0); LYMPHOCYTES # (AUTO) 0.9 X10^3/uL (1.3-2.9); LYMPHOCYTES % (AUTO) 11.5 % (21.0-51.0); MEAN CORPUSCULAR HEMOGLOBIN 31.5 pg (27.0-34.0); MEAN CORPUSCULAR HGB CONC 33.4 g/dL (33.0-35.0); MEAN CORPUSCULAR VOLUME 94.2 fL (80.0-100.0); MEAN PLATELET VOLUME 7.9 fL (7.4-11.0); MONOCYTES # (AUTO) 0.6 x10^3/uL (0.3-0.8); NEUTROPHILS # (AUTO) 5.6 x10^3/uL (2.2-4.8); NEUTROPHILS % (AUTO) 73.8 % (42.0-75.0); PLATELET COUNT 240 X10^3/uL (150.0-450.0); RED BLOOD COUNT 3.27 X10^6/uL (3.5-5.4); RED CELL DISTRIBUTION WIDTH 16.4 % (11.6-16.5); WHITE BLOOD COUNT 7.6 X10^3/uL (3.6-10.0)
[2017-07-24 05:41] LABS: ALANINE AMINOTRANSFERASE 31 Units/L (12-78); ALBUMIN 2.7 g/dL (3.4-5.0); ALKALINE PHOSPHATASE 78 Units/L (46-116); ASPARTATE AMINO TRANSFERASE 34 Units/L (15-37); BLOOD UREA NITROGEN 26 mg/dL (7-18); CALCIUM 8.4 mg/dL (8.5-10.1); CARBON DIOXIDE 21.6 mmol/L (21-32); CHLORIDE 101 mmol/L (98-107); COR CA(FOR HYPOALB) 9.4 mg/dL (8.5-10.1); CREATININE 1.31 mg/dL (0.55-1.02); SODIUM 133 mmol/L (136-145); TOTAL PROTEIN 6.6 g/dL (6.4-8.2); eGFR BLACK RACES 52 (>60); eGFR NON BLACK RACES 43 (>60)
[2017-07-24] MEDS: APRESOLINE TAB 25 MG PO SCH ×3 (05:51→22:01)
[2017-07-24] MEDS ORDERED: LR 1000 ML IV 1,000 ML IV ONE (08:45)
[2017-07-24] MEDS ORDERED: IMODIUM CAP 2 MG PO PRN (08:46)
[2017-07-24] MEDS ORDERED: LEXAPRO ONE (08:52)
[2017-07-24] MEDS ORDERED: ZESTRIL TAB 20 MG ONE (08:53)
[2017-07-24] MEDS: LEXAPRO PO SCH (09:00)
[2017-07-24] MEDS: PROVERA PO SCH (09:00)
[2017-07-24] MEDS: CARDIZEM CD 180 MG PO SCH (09:00)
[2017-07-24] MEDS: ZESTRIL TAB 20 MG PO SCH (09:00)
[2017-07-24] MEDS: K-DUR TAB 20 MEQ PO SCH (09:00)
[2017-07-24] MEDS: BRILINTA PO SCH ×2 (09:01→20:32)
[2017-07-24] MEDS: VSL#3 PO SCH ×2 (09:01)
[2017-07-24] MEDS: PERCOCET TAB 5/325 MG PO PRN (09:04)
[2017-07-24] MEDS: NS 1000 ML 1,000 ML IV SCH ×2 (14:42→22:01)
[2017-07-25] MEDS: NS 1000 ML 1,000 ML IV SCH ×4 (01:20→23:34)
[2017-07-25] MEDS: PERCOCET TAB 5/325 MG PO PRN ×4 (01:20→21:31)
[2017-07-25 05:21] LABS: BASOPHILS # (AUTO) 0.1 X10^3/uL (0.0-0.1); BASOPHILS % (AUTO) 1.3 % (0.2-1.0); EOSINOPHILS # (AUTO) 0.3 x10^3/uL (0.0-0.2); EOSINOPHILS % (AUTO) 4.5 % (0.9-2.9); HEMATOCRIT 31.1 % (36.0-47.0); HEMOGLOBIN 10.5 g/dL (12.0-16.0); LYMPHOCYTES # (AUTO) 0.6 X10^3/uL (1.3-2.9); LYMPHOCYTES % (AUTO) 9.4 % (21.0-51.0); MEAN CORPUSCULAR HEMOGLOBIN 31.9 pg (27.0-34.0); MEAN CORPUSCULAR HGB CONC 33.7 g/dL (33.0-35.0); MEAN CORPUSCULAR VOLUME 94.5 fL (80.0-100.0); MONOCYTES # (AUTO) 0.5 x10^3/uL (0.3-0.8); MONOCYTES % (AUTO) 7.7 % (0.0-13.0); NEUTROPHILS % (AUTO) 77.1 % (42.0-75.0); PLATELET COUNT 226 X10^3/uL (150.0-450.0); RED BLOOD COUNT 3.29 X10^6/uL (3.5-5.4); RED CELL DISTRIBUTION WIDTH 15.9 % (11.6-16.5); WHITE BLOOD COUNT 6.4 X10^3/uL (3.6-10.0)
[2017-07-25] MEDS: APRESOLINE TAB 25 MG PO SCH ×3 (05:23→21:31)
[2017-07-25 05:45] LABS: ALANINE AMINOTRANSFERASE 33 Units/L (12-78); ALBUMIN 2.7 g/dL (3.4-5.0); ALKALINE PHOSPHATASE 75 Units/L (46-116); ASPARTATE AMINO TRANSFERASE 39 Units/L (15-37); BLOOD UREA NITROGEN 20 mg/dL (7-18); CARBON DIOXIDE 19.1 mmol/L (21-32); CHLORIDE 104 mmol/L (98-107); CREATININE 1.08 mg/dL (0.55-1.02); SODIUM 135 mmol/L (136-145); TOTAL PROTEIN 6.5 g/dL (6.4-8.2); eGFR BLACK RACES > 60 (>60); eGFR NON BLACK RACES 54 (>60)
--- NOTE | 2017-07-25 06:40 | RAD ---
HISTORY: Injury, fall, left knee pain Study: Left knee AP, lateral, oblique Comparison: 07/17/2017 Findings: There is no evidence for fracture, lytic, or blastic lesion. No joint erosion or joint effusion is id entified. No periarticular soft tissue abnormality is identified. IMPRESSION: No significant abnormality identified Reported By:
--- NOTE | 2017-07-25 06:41 | RAD ---
HISTORY: Injury, fall, left foot pain Study: Left foot AP, lateral, oblique Comparison: None Findings: There is no evidence for fracture, lytic, or blastic lesion. No erosive arthritis or soft tissue abno rmality is identified. The joints are normal. IMPRESSION: No significant abnormality identified Reported By:
[2017-07-25] MEDS ORDERED: LEXAPRO ONE (08:09)
[2017-07-25] MEDS ORDERED: ZESTRIL TAB 20 MG ONE (08:10)
[2017-07-25] MEDS: PROVERA PO SCH (08:30)
[2017-07-25] MEDS: ZESTRIL TAB 20 MG PO SCH (08:30)
[2017-07-25] MEDS: VSL#3 PO SCH (08:30)
[2017-07-25] MEDS: K-DUR TAB 20 MEQ PO SCH (08:30)
[2017-07-25] MEDS: BRILINTA PO SCH ×2 (08:30→20:35)
[2017-07-25] MEDS: CARDIZEM CD 180 MG PO SCH (08:30)
[2017-07-25] MEDS: LEXAPRO PO SCH (08:30)
[2017-07-25] MEDS: VANCOMYCIN HCL PO SCH ×3 (12:19→20:35)
[2017-07-26] MEDS: NS 1000 ML 1,000 ML IV SCH ×4 (03:09→18:41)
[2017-07-26] MEDS: VANCOMYCIN HCL PO SCH ×4 (03:09→21:09)
[2017-07-26] MEDS: APRESOLINE TAB 25 MG PO SCH ×3 (05:09→21:09)
[2017-07-26 05:55] LABS: ALANINE AMINOTRANSFERASE 30 Units/L (12-78); ALBUMIN 2.6 g/dL (3.4-5.0); ALKALINE PHOSPHATASE 69 Units/L (46-116); ASPARTATE AMINO TRANSFERASE 30 Units/L (15-37); BLOOD UREA NITROGEN 15 mg/dL (7-18); CALCIUM 7.9 mg/dL (8.5-10.1); CARBON DIOXIDE 20.6 mmol/L (21-32); CHLORIDE 105 mmol/L (98-107); CREATININE 0.95 mg/dL (0.55-1.02); SODIUM 137 mmol/L (136-145); TOTAL PROTEIN 6.1 g/dL (6.4-8.2); eGFR BLACK RACES > 60 (>60); eGFR NON BLACK RACES > 60 (>60)
[2017-07-26 07:13] LABS: BASOPHILS # (AUTO) 0.2 X10^3/uL (0.0-0.1); BASOPHILS % (AUTO) 2.6 % (0.2-1.0); EOSINOPHILS # (AUTO) 0.3 x10^3/uL (0.0-0.2); EOSINOPHILS % (AUTO) 5.5 % (0.9-2.9); HEMATOCRIT 28.9 % (36.0-47.0); HEMOGLOBIN 9.8 g/dL (12.0-16.0); LYMPHOCYTES # (AUTO) 0.6 X10^3/uL (1.3-2.9); MEAN CORPUSCULAR HEMOGLOBIN 31.6 pg (27.0-34.0); MEAN CORPUSCULAR HGB CONC 33.9 g/dL (33.0-35.0); MEAN CORPUSCULAR VOLUME 93.4 fL (80.0-100.0); MEAN PLATELET VOLUME 7.5 fL (7.4-11.0); MONOCYTES # (AUTO) 0.4 x10^3/uL (0.3-0.8); MONOCYTES % (AUTO) 7.5 % (0.0-13.0); NEUTROPHILS # (AUTO) 4.3 x10^3/uL (2.2-4.8); NEUTROPHILS % (AUTO) 74.4 % (42.0-75.0); PLATELET COUNT 225 X10^3/uL (150.0-450.0); RED BLOOD COUNT 3.09 X10^6/uL (3.5-5.4); RED CELL DISTRIBUTION WIDTH 15.6 % (11.6-16.5); WHITE BLOOD COUNT 5.8 X10^3/uL (3.6-10.0)
[2017-07-26] MEDS ORDERED: LEXAPRO ONE (08:13)
[2017-07-26] MEDS ORDERED: ZESTRIL TAB 20 MG ONE (08:13)
[2017-07-26] MEDS: PROVERA PO SCH (08:18)
[2017-07-26] MEDS: CARDIZEM CD 180 MG PO SCH (08:18)
[2017-07-26] MEDS: BRILINTA PO SCH ×2 (08:18→21:09)
[2017-07-26] MEDS: VSL#3 PO SCH (08:19)
[2017-07-26] MEDS: K-DUR TAB 20 MEQ PO SCH (08:19)
[2017-07-26] MEDS: ZESTRIL TAB 20 MG PO SCH (08:19)
[2017-07-26] MEDS: LEXAPRO PO SCH (08:19)
[2017-07-26] MEDS: PERCOCET TAB 5/325 MG PO PRN ×2 (08:19→15:40)
[2017-07-27] MEDS: VANCOMYCIN HCL PO SCH ×4 (03:11→21:25)
[2017-07-27] MEDS: NS 1000 ML 1,000 ML IV SCH (04:11)
[2017-07-27] MEDS: APRESOLINE TAB 25 MG PO SCH ×3 (05:40→21:24)
[2017-07-27] MEDS ORDERED: LEXAPRO ONE (08:11)
[2017-07-27] MEDS ORDERED: ZESTRIL TAB 20 MG ONE (08:12)
[2017-07-27] MEDS: K-DUR TAB 20 MEQ PO SCH (08:15)
[2017-07-27] MEDS: BRILINTA PO SCH ×2 (08:16→21:25)
[2017-07-27] MEDS: VSL#3 PO SCH (08:16)
[2017-07-27] MEDS: PROVERA PO SCH (08:16)
[2017-07-27] MEDS: CARDIZEM CD 180 MG PO SCH (08:16)
[2017-07-27] MEDS: ZESTRIL TAB 20 MG PO SCH (08:16)
[2017-07-27] MEDS: LEXAPRO PO SCH (08:16)
[2017-07-27] MEDS: PERCOCET TAB 5/325 MG PO PRN (10:13)
[2017-07-28] MEDS: VANCOMYCIN HCL PO SCH ×4 (03:59→20:54)
[2017-07-28] MEDS: APRESOLINE TAB 25 MG PO SCH ×3 (05:33→21:07)
[2017-07-28] MEDS ORDERED: ZESTRIL TAB 20 MG ONE (08:41)
[2017-07-28] MEDS ORDERED: LEXAPRO ONE (08:41)
[2017-07-28] MEDS: K-DUR TAB 20 MEQ PO SCH (08:43)
[2017-07-28] MEDS: BRILINTA PO SCH ×2 (08:43→20:54)
[2017-07-28] MEDS: CARDIZEM CD 180 MG PO SCH (08:43)
[2017-07-28] MEDS: LEXAPRO PO SCH (08:44)
[2017-07-28] MEDS: ZESTRIL TAB 20 MG PO SCH (08:44)
[2017-07-28] MEDS: VSL#3 PO SCH (08:44)
[2017-07-28] MEDS: PROVERA PO SCH (08:44)
[2017-07-28] MEDS: PERCOCET TAB 5/325 MG PO PRN (09:07)
--- NOTE | 2017-07-28 22:52 | RAD ---
HISTORY: 67-year-old female with CHF exacerbation. Study: Frontal view of the chest. Comparison: Chest radiograph 07/16/2017 Findings: The trachea is midline. The cardiac silhouette is stably enlarged. The lungs are clear without foca l consolidation, effusion or pneumothorax. Soft tissues are unremarkable. Osseous structures are unr emarkable. IMPRESSION: 1. No acute cardiopulmonary disease. Reported By:
[2017-07-29] MEDS: VANCOMYCIN HCL PO SCH ×4 (03:31→20:21)
[2017-07-29] MEDS: APRESOLINE TAB 25 MG PO SCH ×3 (05:11→21:42)
[2017-07-29 06:14] LABS: BASOPHILS # (AUTO) 0.1 X10^3/uL (0.0-0.1); BASOPHILS % (AUTO) 1.2 % (0.2-1.0); EOSINOPHILS # (AUTO) 0.4 x10^3/uL (0.0-0.2); EOSINOPHILS % (AUTO) 6.8 % (0.9-2.9); HEMATOCRIT 30.4 % (36.0-47.0); HEMOGLOBIN 10.5 g/dL (12.0-16.0); LYMPHOCYTES # (AUTO) 1.3 X10^3/uL (1.3-2.9); LYMPHOCYTES % (AUTO) 20.8 % (21.0-51.0); MEAN CORPUSCULAR HEMOGLOBIN 31.7 pg (27.0-34.0); MEAN CORPUSCULAR HGB CONC 34.4 g/dL (33.0-35.0); MEAN CORPUSCULAR VOLUME 92.1 fL (80.0-100.0); MONOCYTES # (AUTO) 0.5 x10^3/uL (0.3-0.8); MONOCYTES % (AUTO) 8.4 % (0.0-13.0); NEUTROPHILS # (AUTO) 3.8 x10^3/uL (2.2-4.8); NEUTROPHILS % (AUTO) 62.8 % (42.0-75.0); PLATELET COUNT 218 X10^3/uL (150.0-450.0); RED CELL DISTRIBUTION WIDTH 15.5 % (11.6-16.5); WHITE BLOOD COUNT 6.1 X10^3/uL (3.6-10.0)
[2017-07-29 06:25] LABS: ALANINE AMINOTRANSFERASE 29 Units/L (12-78); ALBUMIN 2.7 g/dL (3.4-5.0); ALKALINE PHOSPHATASE 72 Units/L (46-116); ASPARTATE AMINO TRANSFERASE 24 Units/L (15-37); BLOOD UREA NITROGEN 7 mg/dL (7-18); CALCIUM 8.4 mg/dL (8.5-10.1); CARBON DIOXIDE 24.5 mmol/L (21-32); CHLORIDE 106 mmol/L (98-107); COR CA(FOR HYPOALB) 9.4 mg/dL (8.5-10.1); CREATININE 0.89 mg/dL (0.55-1.02); SODIUM 139 mmol/L (136-145); TOTAL PROTEIN 6.5 g/dL (6.4-8.2); eGFR BLACK RACES > 60 (>60); eGFR NON BLACK RACES > 60 (>60)
[2017-07-29] MEDS ORDERED: LEXAPRO ONE (08:54)
[2017-07-29] MEDS ORDERED: ZESTRIL TAB 20 MG ONE (08:55)
[2017-07-29] MEDS: K-DUR TAB 20 MEQ PO SCH (09:36)
[2017-07-29] MEDS: BRILINTA PO SCH ×2 (09:36→20:21)
[2017-07-29] MEDS: ZESTRIL TAB 20 MG PO SCH (09:37)
[2017-07-29] MEDS: CARDIZEM CD 180 MG PO SCH (09:37)
[2017-07-29] MEDS: LEXAPRO PO SCH (09:38)
[2017-07-29] MEDS: PROVERA PO SCH (09:38)
[2017-07-29] MEDS: VSL#3 PO SCH (09:39)
[2017-07-29] MEDS: PERCOCET TAB 5/325 MG PO PRN ×2 (10:28→22:21)
--- NOTE | 2017-07-29 13:05 | PCM.PROG ---
Progress Note - Progress Note for Day of Date: 07/29/17 - Subjective Subjective: IS A PATIENT OF . SHE IS CURRENTLY SWINGBED STATUS FOR PHYSICAL THERAPY AND REHABILITATION. TODAY, SHE IS ALERT AND ORIENTED, LYING IN BED ON MORNING ROUNDS. SHE CONTINUES WITH PAIN TO THE LEFT FOOT/LEG. OTHERWISE, NO COMPLAINTS NOTED. HER VITALS THIS MORNING ARE 98.3-97-20-94%-130/ 60. SHE IS HEMODYNAMICALLY STABLE TODAY. SHE IS CURRENTLY RECEIVING VANCOMYCIN 250MG PO Q6H FOR TREATMENT OF C.DIFF. WE WILL CONTINUE WITH PHYSICAL THERAPY AND CURRENT PLAN OF CARE TODAY. WE WILL CONTINUE TO MONITOR PATIENT. - Past Medical Family Social History Past Med/Fam/Surg Hx: No changes since H&P Allergies: Allergies morphine Allergy (Verified 07/13/17 20:04) - Review of Systems ROS: No change since H&P - Vital Signs and I&O's Vital Signs: Temperature 98.3 F Pulse Rate [Left Brachial] 97 Respiratory Rate 20 Blood Pressure [Right Arm] 145/63 Blood Pressure [Left Arm] 130/60 Blood Pressure 185/79 O2 Sat by Pulse Oximetry 94 Intake and Output: Intake & Output 07/27/17 07/28/17 07/29/17 07/30/17 11:59 11:59 11:59 11:59 Intake Total 2955 870 1025 Output Total 600 Balance 2355 870 1025 - Physical Exam Oriented: Normal Eyes: Normal Ear: Normal Nose: Normal Throat: Normal Respiratory: Normal Cardiovascular: Normal : Normal Auscultation: Bowel Sounds: Normal Palpation: Normal Tenderness: Normal Skin: Wound (LEFT LEG) Musculoskeletal: Left, Leg, Foot, Tender Psychiatric: Normal Mood Description: Calm Affect: Normal Speech Pattern: Clear, Appropriate - Laboratory and Diagnostics Result Diagrams: 07/29/17 05:16 07/29/17 05:16 Labs: Laboratory WBC 6.1 X10^3/uL (3.6-10.0) 07/29/17 05:16 RBC 3.30 X10^6/uL (3.5-5.4) L 07/29/17 05:16 Hgb 10.5 g/dL (12.0-16.0) L 07/29/17 05:16 Hct 30.4 % (36.0-47.0) L 07/29/17 05:16 MCV 92.1 fL (80.0-100.0) 07/29/17 05:16 MCH 31.7 pg (27.0-34.0) 07/29/17 05:16 MCHC 34.4 g/dL (33.0-35.0) 07/29/17 05:16 RDW 15.5 % (11.6-16.5) 07/29/17 05:16 Plt Count 218 X10^3/uL (150.0-450.0) 07/29/17 05:16 MPV 8.0 fL (7.4-11.0) 07/29/17 05:16 Neut % (Auto) 62.8 % (42.0-75.0) 07/29/17 05:16 Lymph % (Auto) 20.8 % (21.0-51.0) L 07/29/17 05:16 [place] % (Auto) 8.4 % (0.0-13.0) 07/29/17 05:16 Eos % (Auto) 6.8 % (0.9-2.9) H 07/29/17 05:16 Baso % (Auto) 1.2 % (0.2-1.0) H 07/29/17 05:16 Neut # (Auto) 3.8 x10^3/uL (2.2-4.8) 07/29/17 05:16 Lymph # (Auto) 1.3 X10^3/uL (1.3-2.9) 07/29/17 05:16 [place] # (Auto) 0.5 x10^3/uL (0.3-0.8) 07/29/17 05:16 Eos # (Auto) 0.4 x10^3/uL (0.0-0.2) H 07/29/17 05:16 Baso # (Auto) 0.1 X10^3/uL (0.0-0.1) 07/29/17 05:16 Absolute Nucleated RBC 0.0 /100WBC 07/29/17 05:16 Sodium 139 mmol/L (136-145) 07/29/17 05:16 Corrected Sodium TNP 07/29/17 05:16 Potassium 3.6 mmol/L (3.5-5.1) 07/29/17 05:16 Chloride 106 mmol/L (98-107) 07/29/17 05:16 Carbon Dioxide 24.5 mmol/L (21-32) 07/29/17 05:16 BUN 7 mg/dL (7-18) 07/29/17 05:16 Creatinine 0.89 mg/dL (0.55-1.02) 07/29/17 05:16 Est GFR (MDRD) Af Amer > 60 (>60) 07/29/17 05:16 Est GFR (MDRD) Non-Af > 60 (>60) 07/29/17 05:16 Glucose 90 mg/dL (65-99) 07/29/17 05:16 Calcium 8.4 mg/dL (8.5-10.1) L 07/29/17 05:16 Corrected Calcium 9.4 mg/dL (8.5-10.1) 07/29/17 05:16 Total Bilirubin 0.40 mg/dL (0.2-1.0) 07/29/17 05:16 AST 24 Units/L (15-37) 07/29/17 05:16 ALT 29 Units/L (12-78) 07/29/17 05:16 Alkaline Phosphatase 72 Units/L (46-116) 07/29/17 05:16 Total Protein 6.5 g/dL (6.4-8.2) 07/29/17 05:16 Albumin 2.7 g/dL (3.4-5.0) L 07/29/17 05:16 Globulin 3.8 g/dL (2.5-4.5) 07/29/17 05:16 Albumin/Globulin Ratio 0.7 Ratio (1.1-2.1) L 07/29/17 05:16 Stool Description 50g,unformed,loose 07/24/17 18:32 Stl Occult Blood (IFOB) Negative (NEGATIVE) 07/24/17 18:32 Stl C. diff Tox B Gene Positive (NEGATIVE) A 07/24/17 18:32 Stl C. diff [id number] Negative (NEGATIVE) 07/24/17 18:32
[2017-07-30] MEDS: VANCOMYCIN HCL PO SCH ×4 (02:59→20:07)
[2017-07-30] MEDS: APRESOLINE TAB 25 MG PO SCH ×3 (05:09→21:14)
[2017-07-30 05:38] LABS: ALANINE AMINOTRANSFERASE 28 Units/L (12-78); ALBUMIN 2.7 g/dL (3.4-5.0); ALKALINE PHOSPHATASE 68 Units/L (46-116); ASPARTATE AMINO TRANSFERASE 23 Units/L (15-37); BLOOD UREA NITROGEN 8 mg/dL (7-18); CALCIUM 8.4 mg/dL (8.5-10.1); CARBON DIOXIDE 25.2 mmol/L (21-32); CHLORIDE 104 mmol/L (98-107); COR CA(FOR HYPOALB) 9.4 mg/dL (8.5-10.1); CREATININE 0.82 mg/dL (0.55-1.02); SODIUM 138 mmol/L (136-145); TOTAL PROTEIN 6.4 g/dL (6.4-8.2); eGFR BLACK RACES > 60 (>60); eGFR NON BLACK RACES > 60 (>60)
[2017-07-30 05:42] LABS: BASOPHILS # (AUTO) 0.1 X10^3/uL (0.0-0.1); EOSINOPHILS # (AUTO) 0.5 x10^3/uL (0.0-0.2); EOSINOPHILS % (AUTO) 7.7 % (0.9-2.9); HEMATOCRIT 30.5 % (36.0-47.0); HEMOGLOBIN 10.4 g/dL (12.0-16.0); LYMPHOCYTES # (AUTO) 1.2 X10^3/uL (1.3-2.9); LYMPHOCYTES % (AUTO) 21.1 % (21.0-51.0); MEAN CORPUSCULAR HEMOGLOBIN 31.7 pg (27.0-34.0); MEAN CORPUSCULAR HGB CONC 34.1 g/dL (33.0-35.0); MEAN PLATELET VOLUME 8.2 fL (7.4-11.0); MONOCYTES # (AUTO) 0.4 x10^3/uL (0.3-0.8); MONOCYTES % (AUTO) 7.3 % (0.0-13.0); NEUTROPHILS # (AUTO) 3.6 x10^3/uL (2.2-4.8); NEUTROPHILS % (AUTO) 61.9 % (42.0-75.0); PLATELET COUNT 232 X10^3/uL (150.0-450.0); RED BLOOD COUNT 3.28 X10^6/uL (3.5-5.4); RED CELL DISTRIBUTION WIDTH 15.3 % (11.6-16.5); WHITE BLOOD COUNT 5.9 X10^3/uL (3.6-10.0)
[2017-07-30] MEDS ORDERED: LEXAPRO ONE (08:48)
[2017-07-30] MEDS ORDERED: ZESTRIL TAB 20 MG ONE (08:49)
[2017-07-30] MEDS: BRILINTA PO SCH ×2 (08:59→20:07)
[2017-07-30] MEDS: PROVERA PO SCH (09:00)
[2017-07-30] MEDS: K-DUR TAB 20 MEQ PO SCH (09:00)
[2017-07-30] MEDS: VSL#3 PO SCH (09:00)
[2017-07-30] MEDS: CARDIZEM CD 180 MG PO SCH (09:00)
[2017-07-30] MEDS: LEXAPRO PO SCH (09:00)
[2017-07-30] MEDS: ZESTRIL TAB 20 MG PO SCH (09:00)
[2017-07-30] MEDS: PERCOCET TAB 5/325 MG PO PRN (20:07)
[2017-07-31] MEDS: VANCOMYCIN HCL PO SCH ×4 (03:30→20:51)
[2017-07-31] MEDS: APRESOLINE TAB 25 MG PO SCH ×3 (05:11→22:00)
[2017-07-31 06:49] LABS: BASOPHILS # (AUTO) 0.1 X10^3/uL (0.0-0.1); BASOPHILS % (AUTO) 2.3 % (0.2-1.0); EOSINOPHILS # (AUTO) 0.3 x10^3/uL (0.0-0.2); EOSINOPHILS % (AUTO) 5.3 % (0.9-2.9); HEMATOCRIT 31.7 % (36.0-47.0); LYMPHOCYTES # (AUTO) 0.7 X10^3/uL (1.3-2.9); LYMPHOCYTES % (AUTO) 11.9 % (21.0-51.0); MEAN CORPUSCULAR HEMOGLOBIN 31.9 pg (27.0-34.0); MEAN CORPUSCULAR HGB CONC 34.5 g/dL (33.0-35.0); MEAN CORPUSCULAR VOLUME 92.4 fL (80.0-100.0); MEAN PLATELET VOLUME 8.1 fL (7.4-11.0); MONOCYTES # (AUTO) 0.4 x10^3/uL (0.3-0.8); MONOCYTES % (AUTO) 6.8 % (0.0-13.0); NEUTROPHILS # (AUTO) 4.3 x10^3/uL (2.2-4.8); NEUTROPHILS % (AUTO) 73.7 % (42.0-75.0); PLATELET COUNT 239 X10^3/uL (150.0-450.0); RED BLOOD COUNT 3.43 X10^6/uL (3.5-5.4); RED CELL DISTRIBUTION WIDTH 15.1 % (11.6-16.5); WHITE BLOOD COUNT 5.9 X10^3/uL (3.6-10.0)
[2017-07-31 07:08] LABS: ALANINE AMINOTRANSFERASE 29 Units/L (12-78); ALBUMIN 2.8 g/dL (3.4-5.0); ALKALINE PHOSPHATASE 70 Units/L (46-116); ASPARTATE AMINO TRANSFERASE 25 Units/L (15-37); BLOOD UREA NITROGEN 9 mg/dL (7-18); CALCIUM 8.3 mg/dL (8.5-10.1); CARBON DIOXIDE 24.3 mmol/L (21-32); CHLORIDE 103 mmol/L (98-107); COR CA(FOR HYPOALB) 9.3 mg/dL (8.5-10.1); SODIUM 137 mmol/L (136-145); TOTAL PROTEIN 6.6 g/dL (6.4-8.2); eGFR BLACK RACES > 60 (>60); eGFR NON BLACK RACES > 60 (>60)
[2017-07-31] MEDS ORDERED: LEXAPRO ONE (08:38)
[2017-07-31] MEDS ORDERED: ZESTRIL TAB 20 MG ONE (08:39)
[2017-07-31] MEDS: BRILINTA PO SCH ×2 (08:58→20:50)
[2017-07-31] MEDS: CARDIZEM CD 180 MG PO SCH (08:58)
[2017-07-31] MEDS: LEXAPRO PO SCH (08:58)
[2017-07-31] MEDS: K-DUR TAB 20 MEQ PO SCH (08:58)
[2017-07-31] MEDS: VSL#3 PO SCH (08:59)
[2017-07-31] MEDS: PROVERA PO SCH (08:59)
[2017-07-31] MEDS: ZESTRIL TAB 20 MG PO SCH (08:59)
[2017-07-31] MEDS: PERCOCET TAB 5/325 MG PO PRN (09:08)
[2017-07-31 20:00] LABS: CREATININE 1.18 mg/dL (0.55-1.02); VANCOMYCIN,TROUGH < 2.0 ug/mL (15-20)
[2017-08-01] MEDS: APRESOLINE TAB 25 MG PO SCH (05:54)
[2017-08-01] MEDS ORDERED: LEXAPRO ONE (09:09)
[2017-08-01] MEDS ORDERED: ZESTRIL TAB 20 MG ONE (09:10)
[2017-08-01] MEDS: BRILINTA PO SCH (09:12)
[2017-08-01] MEDS: PROVERA PO SCH (09:13)
[2017-08-01] MEDS: CARDIZEM CD 180 MG PO SCH (09:13)
[2017-08-01] MEDS: ZESTRIL TAB 20 MG PO SCH (09:13)
[2017-08-01] MEDS: K-DUR TAB 20 MEQ PO SCH (09:14)
[2017-08-01] MEDS: VSL#3 PO SCH (09:14)
[2017-08-01] MEDS: PERCOCET TAB 5/325 MG PO PRN (09:14)
[2017-08-01] MEDS: LEXAPRO PO SCH (09:15)
[2017-08-01 13:30] VITALS: BP 151/73
== END 2017-08-01 12:55 | disposition home health service (06) | DRG 949 ==
LOC: MED/SURG 13:45
PROVIDERS: ADMIT Obstetrics & Gynecology Obstetrics; ATTEND Obstetrics & Gynecology Obstetrics
DX: Z51.89 Encounter for other specified aftercare (principal); L76.32 Postprocedural hematoma of skin and subcutaneous tissue following other procedure; Z51.5 Encounter for palliative care; R26.89 Other abnormalities of gait and mobility; A04.72 Enterocolitis due to Clostridium difficile, not specified as recurrent; K52.89 Other specified noninfective gastroenteritis and colitis; N93.8 Other specified abnormal uterine and vaginal bleeding; D62 Acute posthemorrhagic anemia; R42 Dizziness and giddiness; R06.02 Shortness of breath; I25.10 Atherosclerotic heart disease of native coronary artery without angina pectoris; I10 Essential (primary) hypertension; I48.91 Unspecified atrial fibrillation; E87.6 Hypokalemia; Z98.890 Other specified postprocedural states; M79.652 Pain in left thigh; Z95.5 Presence of coronary angioplasty implant and graft
CPT/HCPCS: 36415; 71045; 73564; 73630; 80053; 80202; 82274; 82565; 85025; 87493; 97535; S0181

== ENCOUNTER 2018-04-08 13:55 | Inpatient (IN) ==
[2018-04-08 14:14] LABS: ABG BASE EXCESS -8.2 mmol/L (-2.0-2.0); ABG HCO3 20.2 mmol/L (22-26)
[2018-04-08] MEDS ORDERED: TORADOL 30 MG VIAL ONE (14:18)
[2018-04-08] MEDS ORDERED: TORADOL 30 MG VIAL IVP ONE (14:23)
[2018-04-08 14:24] LABS: BASOPHILS # (AUTO) 0.2 X10^3/uL (0.0-0.1); BASOPHILS % (AUTO) 0.8 % (0.2-1.0); EOSINOPHILS # (AUTO) 0.3 x10^3/uL (0.0-0.2); EOSINOPHILS % (AUTO) 1.5 % (0.9-2.9); HEMATOCRIT 34.8 % (36.0-47.0); HEMOGLOBIN 11.5 g/dL (12.0-16.0); LYMPHOCYTES % (AUTO) 19.1 % (21.0-51.0); MEAN CORPUSCULAR HEMOGLOBIN 30.2 pg (27.0-34.0); MEAN CORPUSCULAR VOLUME 91.6 fL (80.0-100.0); MEAN PLATELET VOLUME 8.2 fL (7.4-11.0); MONOCYTES % (AUTO) 4.7 % (0.0-13.0); NEUTROPHILS # (AUTO) 15.7 x10^3/uL (2.2-4.8); NEUTROPHILS % (AUTO) 73.9 % (42.0-75.0); PLATELET COUNT 295 X10^3/uL (150.0-450.0); RED BLOOD COUNT 3.79 X10^6/uL (3.5-5.4); RED CELL DISTRIBUTION WIDTH 15.7 % (11.6-16.5); WHITE BLOOD COUNT 21.2 X10^3/uL (3.6-10.0)
[2018-04-08 14:56] LABS: BILIRUBIN,URINE 1+ (NEGATIVE); BLOOD/HEMOGLOBIN,URINE 3+ (NEGATIVE); GLUCOSE, URINE NEGATIVE (NEGATIVE); KETONES,URINE 1+ (NEGATIVE); LEUKOCYTE ESTERASE ,URINE 1+ (NEGATIVE); NITRITES,URINE NEGATIVE (NEGATIVE); PROTEIN,URINE 3+ (NEGATIVE); UROBILINOGEN,URINE 1+ (NORMAL)
--- NOTE | 2018-04-08 14:56 | RAD ---
HISTORY: Shortness of breath and chest pain. Study: Portable chest. Comparison: Chest x-ray dated July 28, 2017. Findings: The trachea is midline. The cardiac silhouette is enlarged with prominent perihilar vasculature and right greater than left diffuse alveolar/interstitial markings. Suggestion of a small right pleural effusion. No obvious pneumothorax. The bony thorax is unremarkable. IMPRESSION: Constellation of findings which may represent pulmonary edema secondary to congestive heart failure. Superimposed infiltrate not entirely excluded. Reported By:
[2018-04-08 14:58] LABS: PLATELET MORPHOLOGY COMMENT NORMAL (NORMAL)
[2018-04-08 15:15] LABS: APPEARANCE,URINE CLOUDY (CLEAR); COLOR,URINE YELLOW (YELLOW)
[2018-04-08 15:19] LABS: CALCIUM 8.9 mg/dL (8.5-10.1); CARBON DIOXIDE 22.6 mmol/L (21-32); CREATININE 1.73 mg/dL (0.55-1.02); TROPONIN I 0.11 ng/mL (0-1.5)
[2018-04-08 15:33] LABS: ALBUMIN 3.2 g/dL (3.4-5.0); CKMB % 3.8 % (<4); COR CA(FOR HYPOALB) 9.5 mg/dL (8.5-10.1); CREATINE KINASE MB 1.7 ng/mL (0-4.0); MAGNESIUM 2.1 mg/dL (1.7-2.9); TOTAL PROTEIN 7.4 g/dL (6.4-8.2)
[2018-04-08 15:33] LABS: AMORPHOUS SEDIMENT,UR 4+ /HPF (NEGATIVE); BACTERIA,URINE NEGATIVE /HPF (NEGATIVE); SQUAMOUS EPITHELIAL CELL,UR MANY /HPF (NEGATIVE)
[2018-04-08 15:34] LABS: MUCUS,URINE MODERATE /HPF (NEGATIVE)
--- NOTE | 2018-04-08 15:42 | DR.SOBA ---
HPI Time Seen Time Seen by Provider: 04/08/18 14:03 Primary Care Physician Primary Care Physician: IQBAL Complaints Chief Complaint:: PT. C/O SHORTNESS OF BREATH AND CHEST PAIN. INITIAL O2 SAT UPON EMS ARRIVAL WAS IN THE 70'S. PT. WAS GIVEN A BREATHING TREATMENT AND WAS PLACED ON O2 @ 4LPM VIA N/C AND O2 SAT INCREASED TO 90%. PT. STATES HER SYMPTOMS BEGAN DURING THE NIGHT. UPON ARRIVAL TO ER, PT. IS PALE, DIAPHORETIC, CYANOTIC AROUND THE LIPS, HAVING LABORED RR WITH ACCESSORY MUSCLE USE. PT. HOLDING HER CHEST WITH FACIAL GRIMACING NOTED. Source History Provided: Patient and EMS Mode of Arrival Mode of Arrival: EMS Timing Onset of Chief Complaint: 04/07/18 PMH PMH Past Medical History: Yes Past Medical History: Arthritis, Coronary Artery Disease and Hypertension Past Surgical History: Yes Surgical History: Angioplasty/Stents, Ortho Surgery and Other Family History History of Family Medical Conditions: Yes Family Medical History: Cancer, Coronary Artery Disease and Hypertension Social History Does patient currently use any type of tobacco product: Yes Have you used tobacco products in the last 12 months: Yes Type of Tobacco Use: Cigarettes Does any household member use tobacco: No Alcohol Use: None Do you use any recreational Drugs:: No Lives With: Family Lives Where: Home infectious screening In the last 2 months have you had wt loss of >10#?: NO Have you had fever, night sweats or hemotysis?: No Have you traveled outside the country in the last 6 months?: No Isolation: Standard PE Vital Signs Vitals: Temperature 96.9 F Pulse Rate [Apical] 62 Pulse Rate 45 Respiratory Rate 15 Blood Pressure [Right Arm] 145/63 Blood Pressure [Left Arm] 105/57 Blood Pressure 115/53 O2 Sat by Pulse Oximetry 100 General Limitations: Altered Mental Status General Appearance: Obtunded and In Distress Head Head Exam: Normal Inspection, Atraumatic and Normocephalic Eyes Eye exam: Normal Appearance, PERRL and EOMI ENT ENT Exam: Normal Exam, Normal Oropharynx and Normal External Ear Exam Neck Neck Exam: Normal Inspection Chest Chest Inspection: Normal Inspection and Symmetric Chest Wall Rise Respiratory Respiratory Exam: Normal Lung Sounds Bilat Respiratory Exam: Bilateral: Clear to Auscultation Cardiovascular Cardiovascular Exam: Regular Rate and Normal Rhythm Abdominal Exam Abdominal Exam: Normal Inspection, Normal Bowel Sounds and Soft Extremities Extremities Exam: Normal Inspection and Full ROM Back Back Exam: Normal Inspection and Full ROM Neurologic Neurological Exam: Alert Psychiatric Psychiatric Exam: Normal Affect and Flat Affect Skin Skin Exam: Warm, Dry, Intact and Normal Color COURSE Treatment Treatment: Bipap 03/01 R12 100%; oxygenation improved to 94% Reevaluation 1st: Improved Consultation Called: 16:15 Consultation Comments: Dr. Burr agreed to admit for further treatment and evaluation ROR Labs Reviewed Laboratory Results Reviewed?: Yes Result Diagrams: 04/08/18 14:11 04/08/18 14:11 Laboratory: WBC 21.2 X10^3/uL (3.6-10.0) H 04/08/18 14:11 RBC 3.79 X10^6/uL (3.5-5.4) 04/08/18 14:11 Hgb 11.5 g/dL (12.0-16.0) L 04/08/18 14:11 Hct 34.8 % (36.0-47.0) L 04/08/18 14:11 MCV 91.6 fL (80.0-100.0) 04/08/18 14:11 MCH 30.2 pg (27.0-34.0) 04/08/18 14:11 MCHC 33.0 g/dL (33.0-35.0) 04/08/18 14:11 RDW 15.7 % (11.6-16.5) 04/08/18 14:11 Plt Count 295 X10^3/uL (150.0-450.0) 04/08/18 14:11 Plt Count Comment Adequate (ADEQUATE) 04/08/18 14:11 MPV 8.2 fL (7.4-11.0) 04/08/18 14:11 Neut % (Auto) 73.9 % (42.0-75.0) 04/08/18 14:11 Lymph % (Auto) 19.1 % (21.0-51.0) L 04/08/18 14:11 [place] % (Auto) 4.7 % (0.0-13.0) 04/08/18 14:11 Eos % (Auto) 1.5 % (0.9-2.9) 04/08/18 14:11 Baso % (Auto) 0.8 % (0.2-1.0) 04/08/18 14:11 Neut # (Auto) 15.7 x10^3/uL (2.2-4.8) H 04/08/18 14:11 Lymph # (Auto) 4.0 X10^3/uL (1.3-2.9) H 04/08/18 14:11 [place] # (Auto) 1.0 x10^3/uL (0.3-0.8) H 04/08/18 14:11 Eos # (Auto) 0.3 x10^3/uL (0.0-0.2) H 04/08/18 14:11 Baso # (Auto) 0.2 X10^3/uL (0.0-0.1) H 04/08/18 14:11 Absolute Nucleated RBC 0.1 /100WBC 04/08/18 14:11 Total Counted 100 04/08/18 14:11 Neutrophils % (Manual) 78 % (39-76) H 04/08/18 14:11 Lymphocytes % (Manual) 18 % (13-43) 04/08/18 14:11 Monocytes % (Manual) 3 % (4-9) L 04/08/18 14:11 Eosinophils % (Manual) 1 % (0-6) 04/08/18 14:11 Plt Morphology Comment Normal (NORMAL) 04/08/18 14:11 RBC Morphology Normal (NORMAL) 04/08/18 14:11 INR Target Range - 04/08/18 14:11 INR 0.92 (0.8-1.3) 04/08/18 14:11 D-Dimer 2260 ng/mL (0-400) H* 04/08/18 14:11 [facility] 04/08/18 15:33 ABG pH 7.290 (7.35-7.45) L 04/08/18 15:33 ABG pCO2 46.0 mmHg (35.0-45.0) H 04/08/18 15:33 ABG pO2 237.0 mmHg (80.0-100.0) H 04/08/18 15:33 ABG HCO3 22.1 mmol/L (22-26) 04/08/18 15:33 ABG O2 Saturation 100.0 % (90-100) 04/08/18 15:33 ABG Base Excess -4.5 mmol/L (-2.0-2.0) L 04/08/18 15:33 Dave Test na 04/08/18 15:33 A-a Gradient 419.0 mmHg 04/08/18 15:33 FiO2 100.0 04/08/18 15:33 Blood Gas Comments [facility] well [facility] 04/08/18 15:33 Sodium 137 mmol/L (136-145) 04/08/18 14:11 Corrected Sodium 138 mmol/L (136-145) 04/08/18 14:11 Potassium 4.0 mmol/L (3.5-5.1) 04/08/18 14:11 Chloride 103 mmol/L (98-107) 04/08/18 14:11 Carbon Dioxide 22.6 mmol/L (21-32) 04/08/18 14:11 BUN 28 mg/dL (7-18) H 04/08/18 14:11 Creatinine 1.73 mg/dL (0.55-1.02) H 04/08/18 14:11 Est GFR (MDRD) Af Amer 38 (>60) L 04/08/18 14:11 Est GFR (MDRD) Non-Af 31 (>60) L 04/08/18 14:11 Glucose 161 mg/dL (65-99) H 04/08/18 14:11 Lactic Acid 1.7 mmol/L (0.4-2.0) 04/08/18 14:54 Calcium 8.9 mg/dL (8.5-10.1) 04/08/18 14:11 Corrected Calcium 9.5 mg/dL (8.5-10.1) 04/08/18 14:11 Magnesium 2.1 mg/dL (1.7-2.9) 04/08/18 14:11 Total Bilirubin 0.30 mg/dL (0.2-1.0) 04/08/18 14:11 AST 15 Units/L (15-37) 04/08/18 14:11 ALT 15 Units/L (12-78) 04/08/18 14:11 Alkaline Phosphatase 119 Units/L (46-116) H 04/08/18 14:11 Creatine Kinase 45 Units/L (26-192) 04/08/18 14:11 CK-MB (CK-2) 1.7 ng/mL (0-4.0) 04/08/18 14:11 CK/CKMB % Calc 3.8 % (<4) 04/08/18 14:11 Troponin I 0.11 ng/mL (0-1.5) 04/08/18 14:11 B-Natriuretic Peptide 254 pg/mL (0-79) H 04/08/18 14:54 Total Protein 7.4 g/dL (6.4-8.2) 04/08/18 14:11 Albumin 3.2 g/dL (3.4-5.0) L 04/08/18 14:11 Globulin 4.2 g/dL (2.5-4.5) 04/08/18 14:11 Albumin/Globulin Ratio 0.8 Ratio (1.1-2.1) L 04/08/18 14:11 Specimen Type Catherized urine 04/08/18 14:45 Urine Color Yellow (YELLOW) 04/08/18 14:45 Urine Appearance Cloudy (CLEAR) 04/08/18 14:45 Urine pH 5.0 (5.0 - 8.0) 04/08/18 14:45 Ur Specific [place] 1.025 (1.000-1.030) 04/08/18 14:45 Urine Protein 3+ (NEGATIVE) 04/08/18 14:45 Urine Glucose (UA) Negative (NEGATIVE) 04/08/18 14:45 Urine Ketones 1+ (NEGATIVE) 04/08/18 14:45 Urine Occult Blood 3+ (NEGATIVE) 04/08/18 14:45 Urine Nitrite Negative (NEGATIVE) 04/08/18 14:45 Urine Bilirubin 1+ (NEGATIVE) 04/08/18 14:45 Urine Urobilinogen 1+ (NORMAL) 04/08/18 14:45 Ur Leukocyte Esterase 1+ (NEGATIVE) 04/08/18 14:45 Urine RBC 3-5 /HPF (NONE SEEN) 04/08/18 14:45 Urine WBC 0-2 /HPF (NONE SEEN) 04/08/18 14:45 Ur Squamous Epith Cells Many /HPF (NEGATIVE) 04/08/18 14:45 Amorphous Sediment 4+ /HPF (NEGATIVE) 04/08/18 14:45 Urine Bacteria Negative /HPF (NEGATIVE) 04/08/18 14:45 Urine Mucus Moderate /HPF (NEGATIVE) 04/08/18 14:45 Ur Culture Indicated? No/not indicated 04/08/18 14:45 Other Results Comments: Chest: The trachea is midline. The cardiac silhouette is enlarged with prominent perihilar vasculature and right greater than left diffuse alveolar/interstitial markings. Suggestion of a small right pleural effusion. No obvious pneumothorax. The bony thorax is unremarkable. Impression: Constellation of findings which may represent pulmonary edema secondary to CHF. Superimposed infiltrate not entirely excluded. XRAY XRAY Interpreted by: Radiologist Diagnosis Discharge Problem: Pneumonia, Prerenal azotemia, Acute respiratory distress, Elevated d-dimer ADDITIONAL NOTES Additional Notes Additional Notes: Patient admitted to floor
[2018-04-08 15:48] LABS: ABG BASE EXCESS -4.5 mmol/L (-2.0-2.0); ABG HCO3 22.1 mmol/L (22-26)
[2018-04-08] MEDS ORDERED: TUSSIONEX PENNKINETIC SUSP PO PRN (16:26)
[2018-04-08] MEDS ORDERED: NS 1/2 1000 ML IV 1,000 ML IV ONE (17:31)
[2018-04-08] MEDS: NS 1/2 1000 ML IV 1,000 ML IV SCH ×2 (17:34→17:35)
[2018-04-08] MEDS: ROBITUSSIN DM PO SCH ×2 (17:35→21:37)
[2018-04-08] MEDS ORDERED: SALINE 3% 15 ML NEB TX NEB ONE (17:39)
[2018-04-08] MEDS ORDERED: PREVNAR 13 IM ONE (18:00)
[2018-04-08] MEDS ORDERED: FLUVIRIN IM ONE (18:00)
[2018-04-08] MEDS ORDERED: OXYCODONE ACETAMINOPHEN PO PRN (19:10)
[2018-04-08] MEDS ORDERED: TYLENOL 325 MG TAB PO PRN (19:15)
[2018-04-08 21:16] LABS: CKMB % 8.4 % (<4)
[2018-04-08 21:26] LABS: CREATINE KINASE MB 11.8 ng/mL (0-4.0); TROPONIN I 5.78 ng/mL (0-1.5)
[2018-04-08] MEDS: VIBRAMYCIN 100 MG in NS 100 ML IV + SPIKE MINIBAG* 100 ML IV SCH (21:37)
[2018-04-08] MEDS: APRESOLINE TAB 25 MG PO SCH (21:37)
[2018-04-08] MEDS: BRILINTA PO SCH (21:38)
[2018-04-08] MEDS ORDERED: HEPARIN SODIUM INJ 5000 UNITS IVP ONE (21:42)
[2018-04-08] MEDS ORDERED: HEPARIN SODIUM INJ 5000 UNITS ONE (21:44)
[2018-04-08] MEDS ORDERED: HEPARIN SODIUM IN D5W 25,000 UNITS/500 ML BAG IV ONE (21:44)
[2018-04-08] MEDS: HEPARIN SODIUM IN D5W 25,000 UNITS/500 ML BAG IV PRN (22:39)
[2018-04-09] MEDS: XOPENEX 1.25 MG/3 ML NEBULE NEB SCH ×3 (00:24→13:10)
[2018-04-09 03:20] LABS: CKMB % 8.2 % (<4)
[2018-04-09 03:22] LABS: CREATINE KINASE MB 12.4 ng/mL (0-4.0); TROPONIN I 7.83 ng/mL (0-1.5)
[2018-04-09] MEDS: ROXICODONE TAB 5 MG PO PRN ×2 (05:00→17:05)
[2018-04-09] MEDS: APRESOLINE TAB 25 MG PO SCH (05:00)
[2018-04-09 05:19] LABS: BASOPHILS # (AUTO) 0.1 X10^3/uL (0.0-0.1); BASOPHILS % (AUTO) 0.8 % (0.2-1.0); EOSINOPHILS # (AUTO) 0.1 x10^3/uL (0.0-0.2); EOSINOPHILS % (AUTO) 1.1 % (0.9-2.9); HEMATOCRIT 31.2 % (36.0-47.0); HEMOGLOBIN 10.2 g/dL (12.0-16.0); LYMPHOCYTES # (AUTO) 0.9 X10^3/uL (1.3-2.9); LYMPHOCYTES % (AUTO) 8.2 % (21.0-51.0); MEAN CORPUSCULAR HEMOGLOBIN 30.2 pg (27.0-34.0); MEAN CORPUSCULAR HGB CONC 32.6 g/dL (33.0-35.0); MEAN CORPUSCULAR VOLUME 92.9 fL (80.0-100.0); MEAN PLATELET VOLUME 8.6 fL (7.4-11.0); MONOCYTES # (AUTO) 0.5 x10^3/uL (0.3-0.8); MONOCYTES % (AUTO) 4.5 % (0.0-13.0); NEUTROPHILS # (AUTO) 9.6 x10^3/uL (2.2-4.8); NEUTROPHILS % (AUTO) 85.4 % (42.0-75.0); PLATELET COUNT 231 X10^3/uL (150.0-450.0); RED BLOOD COUNT 3.36 X10^6/uL (3.5-5.4); RED CELL DISTRIBUTION WIDTH 15.6 % (11.6-16.5); WHITE BLOOD COUNT 11.3 X10^3/uL (3.6-10.0)
[2018-04-09 05:41] LABS: ALANINE AMINOTRANSFERASE 19 Units/L (12-78); ALBUMIN 2.7 g/dL (3.4-5.0); ALKALINE PHOSPHATASE 111 Units/L (46-116); ASPARTATE AMINO TRANSFERASE 40 Units/L (15-37); BLOOD UREA NITROGEN 29 mg/dL (7-18); CALCIUM 8.7 mg/dL (8.5-10.1); CARBON DIOXIDE 22.9 mmol/L (21-32); CHLORIDE 106 mmol/L (98-107); COR CA(FOR HYPOALB) 9.7 mg/dL (8.5-10.1); CREATININE 1.69 mg/dL (0.55-1.02); SODIUM 138 mmol/L (136-145); TOTAL PROTEIN 6.6 g/dL (6.4-8.2); eGFR NON BLACK RACES 32 (>60)
[2018-04-09] MEDS ORDERED: NS 1/2 1000 ML IV 1,000 ML IV ONE (06:23)
[2018-04-09] MEDS: NS 1/2 1000 ML IV 1,000 ML IV SCH (06:26)
[2018-04-09] MEDS ORDERED: LASIX IVP SCH (09:00)
[2018-04-09] MEDS ORDERED: LEXAPRO PO SCH ×2 (09:00→11:00)
[2018-04-09] MEDS ORDERED: CARDIZEM CD 360 MG PO SCH (09:00)
[2018-04-09] MEDS ORDERED: K-DUR TAB 20 MEQ PO SCH (09:00)
[2018-04-09] MEDS ORDERED: ROCEPHIN VIAL 1 GRAM IVP SCH (09:00)
[2018-04-09] MEDS ORDERED: ZESTRIL TAB 40 MG PO SCH (09:00)
[2018-04-09] MEDS ORDERED: PROVERA PO SCH (09:00)
[2018-04-09 09:20] LABS: CREATINE KINASE MB 6.1 ng/mL (0-4.0); TROPONIN I 4.58 ng/mL (0-1.5)
[2018-04-09] MEDS ORDERED: LEXAPRO ONE ×3 (09:57→12:07)
[2018-04-09] MEDS: BRILINTA PO SCH (10:15)
[2018-04-09] MEDS: VIBRAMYCIN 100 MG in NS 100 ML IV + SPIKE MINIBAG* 100 ML IV SCH (10:16)
[2018-04-09] MEDS ORDERED: TOPAMAX PO SCH (11:00)
[2018-04-09] MEDS: ROBITUSSIN DM PO SCH (13:28)
[2018-04-09 14:40] VITALS: BMI 34.7
[2018-04-09] MEDS: HEPARIN SODIUM IN D5W 25,000 UNITS/500 ML BAG IV PRN ×2 (16:49→18:15)
[2018-04-09 17:10] VITALS: BP 127/77
[2018-04-09 17:38] LABS: ABG BASE EXCESS -4.7 mmol/L (-2.0-2.0); ABG HCO3 20.4 mmol/L (22-26)
[2018-04-09 17:39] LABS: ABG ALLEN TEST POS WELL
[2018-04-09 18:26] LABS: CKMB % 5.6 % (<4)
[2018-04-09 18:27] LABS: CREATINE KINASE MB 4.5 ng/mL (0-4.0); TROPONIN I 2.61 ng/mL (0-1.5)
== END 2018-04-09 18:17 | disposition short-term general hospital (02) | DRG 280 ==
LOC: ER 13:56 → ICU 16:24
PROVIDERS: ADMIT Internal Medicine; ATTEND Obstetrics & Gynecology Obstetrics
DX: E87.6 Hypokalemia; Z23 Encounter for immunization; R79.1 Abnormal coagulation profile; R94.31 Abnormal electrocardiogram [ECG] [EKG]; I10 Essential (primary) hypertension; M51.27 Other intervertebral disc displacement, lumbosacral region; R06.02 Shortness of breath; R06.03 Acute respiratory distress; I25.10 Atherosclerotic heart disease of native coronary artery without angina pectoris; I48.91 Unspecified atrial fibrillation; J18.8 Other pneumonia, unspecified organism; E86.0 Dehydration; G44.229 Chronic tension-type headache, not intractable; R79.89 Other specified abnormal findings of blood chemistry; R53.1 Weakness; I21.19 ST elevation (STEMI) myocardial infarction involving other coronary artery of inferior wall; J81.0 Acute pulmonary edema; R07.89 Other chest pain
CPT/HCPCS: 36415; 36600; 51702; 71010; 71045; 80053; 81001; 82550; 82553; 82803; 83605; 83735; 83880; 84484; 85025; 85378; 85610; 85730; 87040; 90686; 93005; 94640; 94660; 96365; 96374; 99284; 99285; A4222; A7030; 90670; J0696; J1644; J1885; J1940; J3490; J7050

== ENCOUNTER 2021-04-18 16:05 | Inpatient (IN) ==
[2021-04-18 16:24] VITALS: BMI 25.0
[2021-04-18 17:27] LABS: BASOPHILS % (AUTO) 0.1 % (0.2-1.0); HEMATOCRIT 30.3 % (36.0-47.0); HEMOGLOBIN 10.5 g/dL (12.0-16.0); LYMPHOCYTES # (AUTO) 0.2 X10^3/uL (1.3-2.9); LYMPHOCYTES % (AUTO) 3.2 % (21.0-51.0); MEAN CORPUSCULAR HEMOGLOBIN 32.5 pg (27.0-34.0); MEAN CORPUSCULAR HGB CONC 34.5 g/dL (33.0-35.0); MEAN CORPUSCULAR VOLUME 94.2 fL (80.0-100.0); MEAN PLATELET VOLUME 9.1 fL (7.4-11.0); MONOCYTES # (AUTO) 0.3 x10^3/uL (0.3-0.8); MONOCYTES % (AUTO) 4.1 % (0.0-13.0); NEUTROPHILS # (AUTO) 7.1 x10^3/uL (2.2-4.8); NEUTROPHILS % (AUTO) 92.6 % (42.0-75.0); RED BLOOD COUNT 3.22 X10^6/uL (3.5-5.4); RED CELL DISTRIBUTION WIDTH 15.3 % (11.6-16.5); WHITE BLOOD COUNT 7.7 X10^3/uL (3.6-10.0)
[2021-04-18 17:30] LABS: BLOOD UREA NITROGEN 20 mg/dL (7-18); CALCIUM 8.1 mg/dL (8.5-10.1); CARBON DIOXIDE 26.5 mmol/L (21-32); CHLORIDE 100 mmol/L (98-107); CREATININE 0.83 mg/dL (0.55-1.02); SODIUM 136 mmol/L (136-145); eGFR NON BLACK RACES > 60 (>60)
[2021-04-18 17:44] LABS: ALANINE AMINOTRANSFERASE 10 Units/L (12-78); ALBUMIN 1.9 g/dL (3.4-5.0); ALKALINE PHOSPHATASE 63 Units/L (46-116); ASPARTATE AMINO TRANSFERASE 30 Units/L (15-37); COR CA(FOR HYPOALB) 9.8 mg/dL (8.5-10.1); TOTAL PROTEIN 6.2 g/dL (6.4-8.2)
[2021-04-18] MEDS ORDERED: NS 500 ML IV 500 ML IV ONE (17:46)
[2021-04-18] MEDS ORDERED: K-RIDER 10 MEQ/NS 100 ML 10 MEQ/100 ML BAG IV ONE ×3 (17:46→18:00)
[2021-04-18] MEDS: K-RIDER 10 MEQ/NS 100 ML 10 MEQ/100 ML BAG IV ONE (17:57)
[2021-04-18] MEDS: NS 500 ML IV 500 ML IV SCH (17:57)
[2021-04-18] MEDS: KLOR-CON PO SCH (17:57)
[2021-04-18 18:01] LABS: PLATELET MORPHOLOGY COMMENT NORMAL (NORMAL); POIKILOCYTOSIS 1+
[2021-04-18 18:02] LABS: SCHISTOCYTES PRESENT
--- NOTE | 2021-04-18 18:23 | RAD ---
HISTORYCough, congestion for 2 weeks, weaknessSTUDYCHEST, 1 VIEWCOMPARISONNone availableTECHNIQUEChest radiographic imaging, AP portable projection, 1 imageFINDINGSNo cardiomegaly.Airspace disease at the periphery of the left upper lobe as well as in the left lower lobe.No pleural effusion.No pneumothorax.No acute osseous abnormality.IMPRESSIONFindings could represent multifocal pneumonia or the sequela of an atypical/viral infectious process. Recommend correlation with COVID testing.Electronically signed by: León Kat (Apr 18, 2021 18:22:20)
[2021-04-18 18:30] LABS: ABG ALLEN TEST POS; ABG BASE EXCESS 3.9 mmol/L (-2.0-2.0); ABG HCO3 27.7 mmol/L (22-26)
[2021-04-18] MEDS: K-DUR TAB 20 MEQ PO ONE ×2 (19:40→19:45)
[2021-04-18] MEDS ORDERED: REMDESIVIR 200 MG in NS 250 ML IV 250 ML IV ONE (20:56)
[2021-04-18] MEDS ORDERED: DUONEB 0.5 MG/3 MG (3 mL) NEB SCH (21:00)
--- NOTE | 2021-04-18 21:03 | DR.GENAD ---
HPI Time Seen Time Seen by Provider: 04/18/21 18:02 PCP Primary Care Physician: IQBAL Complaint/Symptoms Chief Complaint:: "NOT EATING, WEAK, COUGH, DIARRHEA" Self Treatment fo Chief Complaint: NONE COVID-19 Coronavirus risk:travel/contact w/high risk person: No Has patient experienced Coronavirus symptoms: No Source History Provided: Patient Mode of Arrival Mode of Arrival: EMS Timing Onset of Chief Complaint: 03/20/21 PMH PMH Past Medical History: Yes Past Medical History: Arthritis, Coronary Artery Disease and Hypertension Past Surgical History: Yes Surgical History: Angioplasty/Stents and Ortho Surgery Family History History of Family Medical Conditions: Yes Family Medical History: Cancer, Coronary Artery Disease and Hypertension Social History Does patient currently use any type of tobacco product: No Type of Tobacco Use: Cigarettes How many years tobacco product used: 50 Does any household member use tobacco: Yes Alcohol Use: None Do you use any recreational Drugs:: No Lives With: Family Lives Where: Home Travel Risk Coronavirus risk:travel/contact w/high risk person: No Has patient experienced Coronavirus symptoms: No Infectious screening In the last 2 months have you had wt loss of >10#?: NO Have you had fever, night sweats or hemotysis?: No Have you traveled outside the country in the last 6 months?: No Isolation: Droplet PE Vital Signs Vitals: Temperature 99.0 F Pulse Rate [Right] 107 Pulse Rate 96 Respiratory Rate 16 Blood Pressure [Right Arm] 145/63 Blood Pressure [Left Arm] 130/73 Blood Pressure 112/55 O2 Sat by Pulse Oximetry 95 ROR Labs Reviewed Result Diagrams: 04/18/21 17:15 04/18/21 17:15 Laboratory: WBC 7.7 X10^3/uL (3.6-10.0) 04/18/21 17:15 RBC 3.22 X10^6/uL (3.5-5.4) L 04/18/21 17:15 Hgb 10.5 g/dL (12.0-16.0) L 04/18/21 17:15 Hct 30.3 % (36.0-47.0) L 04/18/21 17:15 MCV 94.2 fL (80.0-100.0) 04/18/21 17:15 MCH 32.5 pg (27.0-34.0) 04/18/21 17:15 MCHC 34.5 g/dL (33.0-35.0) 04/18/21 17:15 RDW 15.3 % (11.6-16.5) 04/18/21 17:15 Plt Count 138 X10^3/uL (150.0-450.0) L 04/18/21 17:15 Plt Count Comment Decreased (ADEQUATE) A 04/18/21 17:15 MPV 9.1 fL (7.4-11.0) 04/18/21 17:15 Neut % (Auto) 92.6 % (42.0-75.0) H 04/18/21 17:15 Lymph % (Auto) 3.2 % (21.0-51.0) L 04/18/21 17:15 [place] % (Auto) 4.1 % (0.0-13.0) 04/18/21 17:15 Eos % (Auto) 0.0 % (0.9-2.9) L 04/18/21 17:15 Baso % (Auto) 0.1 % (0.2-1.0) L 04/18/21 17:15 Neut # (Auto) 7.1 x10^3/uL (2.2-4.8) H 04/18/21 17:15 Lymph # (Auto) 0.2 X10^3/uL (1.3-2.9) L 04/18/21 17:15 [place] # (Auto) 0.3 x10^3/uL (0.3-0.8) 04/18/21 17:15 Eos # (Auto) 0.0 x10^3/uL (0.0-0.2) 04/18/21 17:15 Baso # (Auto) 0.0 X10^3/uL (0.0-0.1) 04/18/21 17:15 Absolute Nucleated RBC 0.0 /100WBC 04/18/21 17:15 Total Counted 100 04/18/21 17:15 Neutrophils % (Manual) 91 % (39-76) H 04/18/21 17:15 Lymphocytes % (Manual) 5 % (13-43) L 04/18/21 17:15 Monocytes % (Manual) 4 % (4-9) 04/18/21 17:15 Plt Morphology Comment Normal (NORMAL) 04/18/21 17:15 RBC Morphology Abnormal (NORMAL) A 04/18/21 17:15 Poikilocytosis 1+ A 04/18/21 17:15 Acanthocytes (Spur) Present 04/18/21 17:15 Schistocytes Present 04/18/21 17:15 Sample Site Rra 04/18/21 18:27 ABG pH 7.470 (7.35-7.45) H 04/18/21 18:27 ABG pCO2 38.0 mmHg (35.0-45.0) 04/18/21 18:27 ABG pO2 78.0 mmHg (80.0-100.0) L 04/18/21 18:27 ABG HCO3 27.7 mmol/L (22-26) H 04/18/21 18:27 ABG O2 Saturation 96.0 % (90-100) 04/18/21 18:27 ABG Base Excess 3.9 mmol/L (-2.0-2.0) H 04/18/21 18:27 Dave Test Pos 04/18/21 18:27 A-a Gradient 24.0 mmHg 04/18/21 18:27 FiO2 21.0 04/18/21 18:27 Blood Gas Comments Pt jean well eb,submersible pilot 04/18/21 18:27 Sodium 136 mmol/L (136-145) 04/18/21 17:15 Corrected Sodium TNP 04/18/21 17:15 Potassium 2.3 mmol/L (3.5-5.1) L* 04/18/21 17:15 Chloride 100 mmol/L (98-107) 04/18/21 17:15 Carbon Dioxide 26.5 mmol/L (21-32) 04/18/21 17:15 BUN 20 mg/dL (7-18) H 04/18/21 17:15 Creatinine 0.83 mg/dL (0.55-1.02) 04/18/21 17:15 Est GFR (MDRD) Af Amer > 60 (>60) 04/18/21 17:15 Est GFR (MDRD) Non-Af > 60 (>60) 04/18/21 17:15 Glucose 85 mg/dL (65-99) 04/18/21 17:15 Calcium 8.1 mg/dL (8.5-10.1) L 04/18/21 17:15 Corrected Calcium 9.8 mg/dL (8.5-10.1) 04/18/21 17:15 Total Bilirubin 1.00 mg/dL (0.2-1.0) 04/18/21 17:15 AST 30 Units/L (15-37) 04/18/21 17:15 ALT 10 Units/L (12-78) L 04/18/21 17:15 Alkaline Phosphatase 63 Units/L (46-116) 04/18/21 17:15 Total Protein 6.2 g/dL (6.4-8.2) L 04/18/21 17:15 Albumin 1.9 g/dL (3.4-5.0) L 04/18/21 17:15 Globulin 4.3 g/dL (2.5-4.5) 04/18/21 17:15 Albumin/Globulin Ratio 0.4 Ratio (1.1-2.1) L 04/18/21 17:15 SARS CoV-2 RNA Rapid MARCIE Positive (NEGATIVE) A 04/18/21 17:05 Opioid Opioid Risk Tool Age (Lele box if 16-45): No History of Preadolescent Sexual Abuse: No Total: 0 Total Score Risk Category: Low Risk Copyright: Adonay BAXTER predicting aberrant behaviors Diagnosis Discharge Problem: Pneumonia due to 2019-nCoV, Hypokalemia HTN (hypertension) Qualifiers: Hypertension type: primary hypertension Qualified Code(s): I10 - Essential (primary) hypertension Depression Qualifiers: Depression Type: unspecified Qualified Code(s): F32.A - Depression, unspecified Type 2 diabetes mellitus Qualifiers: Diabetes mellitus terminal manager insulin use: without assisted use Diabetes mellitus complication status: with neurologic complications Diabetes mellitus complication detail: with polyneuropathy Qualified Code(s): E11.42 - Type 2 diabetes mellitus with diabetic polyneuropathy
[2021-04-18] MEDS ORDERED: PAXIL PO SCH (22:27)
[2021-04-18] MEDS ORDERED: ANTIVERT TAB 25 MG PO PRN (22:27)
[2021-04-18] MEDS ORDERED: LYRICA CAP 50 mg PO PRN (22:27)
[2021-04-18 22:45] LABS: MAGNESIUM 1.8 mg/dL (1.7-2.9); PHOSPHORUS 2.3 mg/dL (2.6-4.7)
[2021-04-18] MEDS ORDERED: BRILINTA PO ONE (23:16)
[2021-04-18] MEDS ORDERED: TOPAMAX PO ONE (23:16)
[2021-04-18] MEDS ORDERED: PAXIL ONE (23:17)
[2021-04-18] MEDS: BRILINTA PO SCH (23:19)
[2021-04-18] MEDS: TOPAMAX PO SCH (23:20)
[2021-04-19] MEDS ORDERED: PERIACTIN TAB 4 MG PO PRN (08:38)
[2021-04-19] MEDS ORDERED: SOTROVIMAB (EUA) 500 MG, DRUG FILTER EXTENSION SET * 1 EA in NS 250 ML IV 250 ML IV NR ×2 (08:38)
[2021-04-19] MEDS: BROVANA IN SCH ×2 (08:50→21:30)
[2021-04-19] MEDS: PULMICORT NEB TX 0.5 MG NEB SCH ×2 (08:50→21:30)
[2021-04-19] MEDS ORDERED: PHARMACY CONSULT - IVERMECTIN XX SCH (09:00)
[2021-04-19] MEDS ORDERED: SOLU-Medrol 125 MG VIAL IVP SCH (09:00)
[2021-04-19] MEDS ORDERED: BROVANA IN SCH (09:00)
[2021-04-19] MEDS ORDERED: PULMICORT NEB TX 0.5 MG NEB SCH (09:00)
[2021-04-19] MEDS ORDERED: PHARMACY CONSULT - LOVENOX XX SCH (09:00)
[2021-04-19] MEDS ORDERED: VITAMIN A PO SCH (09:00)
[2021-04-19] MEDS ORDERED: LIPITOR TAB 80 MG PO SCH (09:00)
[2021-04-19] MEDS ORDERED: VITAMIN D (1.25MG) PO SCH (09:00)
[2021-04-19] MEDS ORDERED: REMDESIVIR 100 MG in NS 250 ML IV 250 ML IV SCH (09:00)
[2021-04-19] MEDS: FLONASE NASAL SPRAY ENOSTRIL SCH (09:15)
[2021-04-19] MEDS: CYTOTEC PO SCH ×4 (09:15→21:15)
[2021-04-19] MEDS: ASCORBIC ACID INJ MULTI-DOSE VIAL 1,500 MG in NS 100 ML IV 100 ML IV SCH ×3 (09:15→21:15)
[2021-04-19] MEDS: THIAMINE HCL INJ IVP SCH ×2 (09:15→21:15)
[2021-04-19] MEDS: K-DUR TAB 20 MEQ PO SCH (09:15)
[2021-04-19] MEDS: BRILINTA PO SCH ×2 (09:15→21:15)
[2021-04-19 09:36] LABS: BASOPHILS % (AUTO) 0.3 % (0.2-1.0); EOSINOPHILS % (AUTO) 0.1 % (0.9-2.9); HEMATOCRIT 27.9 % (36.0-47.0); HEMOGLOBIN 9.6 g/dL (12.0-16.0); LYMPHOCYTES # (AUTO) 0.4 X10^3/uL (1.3-2.9); LYMPHOCYTES % (AUTO) 7.8 % (21.0-51.0); MEAN CORPUSCULAR HEMOGLOBIN 32.7 pg (27.0-34.0); MEAN CORPUSCULAR HGB CONC 34.5 g/dL (33.0-35.0); MEAN CORPUSCULAR VOLUME 94.9 fL (80.0-100.0); MEAN PLATELET VOLUME 9.6 fL (7.4-11.0); MONOCYTES # (AUTO) 0.4 x10^3/uL (0.3-0.8); MONOCYTES % (AUTO) 7.7 % (0.0-13.0); NEUTROPHILS # (AUTO) 4.2 x10^3/uL (2.2-4.8); NEUTROPHILS % (AUTO) 84.1 % (42.0-75.0); RED BLOOD COUNT 2.94 X10^6/uL (3.5-5.4); RED CELL DISTRIBUTION WIDTH 15.1 % (11.6-16.5)
[2021-04-19 09:42] LABS: BLOOD UREA NITROGEN 19 mg/dL (7-18); CARBON DIOXIDE 27.3 mmol/L (21-32); CHLORIDE 104 mmol/L (98-107); CREATININE 0.77 mg/dL (0.55-1.02); SODIUM 139 mmol/L (136-145); eGFR NON BLACK RACES > 60 (>60)
[2021-04-19] MEDS ORDERED: KLOR-CON PO PRN (09:54)
[2021-04-19] MEDS ORDERED: POTASSIUM CHLORIDE LIQ 20 MEQ UDC PO PRN (09:54)
[2021-04-19] MEDS ORDERED: POTASSIUM CHL 60 MEQ/NS 0.45% 500 ML IV PRN (09:54)
[2021-04-19] MEDS ORDERED: MICRO K EXTEN CAP 10 MEQ PO PRN (09:54)
[2021-04-19] MEDS ORDERED: POTASSIUM CHL 40 MEQ/NS 0.45% 500 ML IV PRN (09:54)
[2021-04-19] MEDS ORDERED: K-RIDER 10 MEQ/NS 100 ML 10 MEQ/100 ML BAG IV PRN (09:54)
[2021-04-19] MEDS ORDERED: NS 50 ML IV 50 ML IV ONE ×2 (10:01→14:09)
[2021-04-19] MEDS ORDERED: PERCOCET TAB 5/325 MG ONE (10:01)
[2021-04-19] MEDS ORDERED: NS 250 ML IV 250 ML IV ONE (10:01)
[2021-04-19] MEDS ORDERED: ZITHROMAX INJ 500 MG VIAL IV ONE (10:01)
[2021-04-19] MEDS ORDERED: K-DUR TAB 20 MEQ PO ONE (10:01)
[2021-04-19] MEDS ORDERED: ASCORBIC ACID INJ MULTI-DOSE VIAL IV ONE ×3 (10:02→20:54)
[2021-04-19 10:08] LABS: ALANINE AMINOTRANSFERASE 8 Units/L (12-78); ALBUMIN 1.8 g/dL (3.4-5.0); ALKALINE PHOSPHATASE 63 Units/L (46-116); ASPARTATE AMINO TRANSFERASE 27 Units/L (15-37); COR CA(FOR HYPOALB) 9.8 mg/dL (8.5-10.1); TOTAL PROTEIN 5.9 g/dL (6.4-8.2)
[2021-04-19] MEDS ORDERED: LOVENOX INJ 30 MG SYR SC ONE ×2 (11:09→20:52)
[2021-04-19] MEDS ORDERED: THIAMINE HCL INJ ONE ×2 (11:09→20:52)
[2021-04-19] MEDS: IVERMECTIN PO SCH (11:15)
[2021-04-19] MEDS: LOVENOX INJ 30 MG SYR SC SCH ×2 (12:03→21:15)
[2021-04-19] MEDS: K-DUR TAB 20 MEQ PO PRN (12:05)
[2021-04-19] MEDS ORDERED: CYTOTEC ONE ×3 (12:09→20:52)
[2021-04-19] MEDS: PAXIL PO SCH (12:14)
[2021-04-19] MEDS: PEPCID TAB 40 MG PO SCH ×2 (12:15→21:15)
[2021-04-19] MEDS: WELLBUTRIN XL 150 MG (DAILY) PO SCH (12:15)
[2021-04-19] MEDS: TOPAMAX PO SCH ×2 (12:16→21:15)
[2021-04-19] MEDS: PROTONIX INJ 40 MG VIAL IVP SCH ×2 (12:16→21:15)
[2021-04-19] MEDS: ZITHROMAX INJ 500 MG VIAL 250 MG in NS 250 ML IV 250 ML IV SCH (12:17)
[2021-04-19] MEDS: VSL#3 PO SCH (12:17)
[2021-04-19] MEDS: PERCOCET TAB 5/325 MG PO PRN (12:17)
[2021-04-19] MEDS: ZINC SULFATE PO SCH ×2 (12:18→21:15)
[2021-04-19] MEDS ORDERED: SOLU-Medrol 40 MG VIAL ONE (14:09)
[2021-04-19] MEDS ORDERED: SOLU-Medrol 40 MG VIAL IVP NR (15:00)
[2021-04-19] MEDS: NS 1,000 ML IV 1,000 ML IV SCH (15:32)
[2021-04-19] MEDS ORDERED: NS 1,000 ML IV 1,000 ML ONE (15:34)
[2021-04-19] MEDS ORDERED: PROTONIX INJ 40 MG VIAL ONE (20:52)
[2021-04-19] MEDS ORDERED: MELATONIN ONE (20:52)
[2021-04-19] MEDS ORDERED: PEPCID TAB 40 MG ONE (20:52)
[2021-04-19] MEDS ORDERED: ZINC SULFATE ONE (20:52)
[2021-04-19] MEDS ORDERED: NS 100 ML IV 100 ML ONE (20:53)
[2021-04-19] MEDS: SOLU-Medrol 125 MG VIAL IVP SCH ×2 (21:15→21:21)
[2021-04-19] MEDS: MELATONIN PO SCH (21:15)
[2021-04-19] MEDS: LIPITOR TAB 80 MG PO SCH ×2 (21:21→21:28)
[2021-04-19] MEDS: NS 500 ML IV 500 ML IV SCH (21:22)
[2021-04-19] MEDS ORDERED: LIPITOR TAB 80 MG ONE (21:26)
[2021-04-19] MEDS: MAGNESIUM SULFATE 1 GRAM/100 mL PREMIX 1 G/100 ML BAG IV PRN ×2 (21:49→22:50)
[2021-04-20] MEDS ORDERED: NS 100 ML IV 100 ML ONE ×4 (02:12→13:22)
[2021-04-20] MEDS ORDERED: ASCORBIC ACID INJ MULTI-DOSE VIAL IV ONE ×4 (02:13→13:22)
[2021-04-20] MEDS: ASCORBIC ACID INJ MULTI-DOSE VIAL 1,500 MG in NS 100 ML IV 100 ML IV SCH ×4 (02:26→20:30)
[2021-04-20] MEDS ORDERED: SOLU-Medrol 125 MG VIAL ONE (04:15)
[2021-04-20] MEDS: SOLU-Medrol 125 MG VIAL IVP SCH ×3 (05:02→22:11)
[2021-04-20] MEDS ORDERED: PROTONIX INJ 40 MG VIAL ONE (08:25)
[2021-04-20] MEDS ORDERED: CYTOTEC ONE ×5 (08:25→13:26)
[2021-04-20] MEDS ORDERED: THIAMINE HCL INJ ONE (08:25)
[2021-04-20] MEDS ORDERED: PEPCID TAB 40 MG ONE (08:25)
[2021-04-20] MEDS ORDERED: NS 250 ML IV 250 ML IV ONE (08:26)
[2021-04-20] MEDS ORDERED: LOVENOX INJ 30 MG SYR SC ONE (08:26)
[2021-04-20] MEDS ORDERED: ZITHROMAX INJ 500 MG VIAL IV ONE (08:26)
[2021-04-20] MEDS ORDERED: NS 1,000 ML IV 1,000 ML ONE (08:51)
[2021-04-20] MEDS: BROVANA IN SCH ×2 (08:55→20:30)
[2021-04-20] MEDS: PULMICORT NEB TX 0.5 MG NEB SCH ×2 (08:55→20:30)
[2021-04-20] MEDS: BRILINTA PO SCH ×2 (09:04→20:27)
[2021-04-20] MEDS: CYTOTEC PO SCH ×4 (09:04→20:26)
[2021-04-20] MEDS: IVERMECTIN PO SCH (09:05)
[2021-04-20] MEDS: FLONASE NASAL SPRAY ENOSTRIL SCH (09:05)
[2021-04-20] MEDS: LOVENOX INJ 30 MG SYR SC SCH ×2 (09:06→20:30)
[2021-04-20] MEDS: K-DUR TAB 20 MEQ PO SCH (09:06)
[2021-04-20] MEDS: NS 1,000 ML IV 1,000 ML IV SCH (09:08)
[2021-04-20] MEDS: PAXIL PO SCH (09:08)
[2021-04-20] MEDS: THIAMINE HCL INJ IVP SCH ×2 (09:09→20:31)
[2021-04-20] MEDS: PROTONIX INJ 40 MG VIAL IVP SCH ×2 (09:09→20:30)
[2021-04-20] MEDS: PEPCID TAB 40 MG PO SCH ×2 (09:09→20:30)
[2021-04-20] MEDS: ZINC SULFATE PO SCH ×2 (09:10→20:27)
[2021-04-20] MEDS: TOPAMAX PO SCH ×2 (09:10→20:27)
[2021-04-20] MEDS: WELLBUTRIN XL 150 MG (DAILY) PO SCH (09:10)
[2021-04-20] MEDS: VSL#3 PO SCH (09:10)
[2021-04-20] MEDS: ZITHROMAX INJ 500 MG VIAL 250 MG in NS 250 ML IV 250 ML IV SCH (09:11)
[2021-04-20 09:44] LABS: BASOPHILS % (AUTO) 0.4 % (0.2-1.0); HEMATOCRIT 28.3 % (36.0-47.0); HEMOGLOBIN 9.5 g/dL (12.0-16.0); LYMPHOCYTES # (AUTO) 0.1 X10^3/uL (1.3-2.9); MEAN CORPUSCULAR HGB CONC 33.4 g/dL (33.0-35.0); MEAN CORPUSCULAR VOLUME 95.7 fL (80.0-100.0); MONOCYTES # (AUTO) 0.1 x10^3/uL (0.3-0.8); MONOCYTES % (AUTO) 2.6 % (0.0-13.0); NEUTROPHILS # (AUTO) 4.7 x10^3/uL (2.2-4.8); RED BLOOD COUNT 2.96 X10^6/uL (3.5-5.4); RED CELL DISTRIBUTION WIDTH 15.3 % (11.6-16.5)
[2021-04-20 09:51] LABS: BLOOD UREA NITROGEN 22 mg/dL (7-18); CALCIUM 7.4 mg/dL (8.5-10.1); CARBON DIOXIDE 22.7 mmol/L (21-32); CHLORIDE 105 mmol/L (98-107); CREATININE 0.82 mg/dL (0.55-1.02); SODIUM 141 mmol/L (136-145); eGFR NON BLACK RACES > 60 (>60)
[2021-04-20 10:02] LABS: ALANINE AMINOTRANSFERASE 10 Units/L (12-78); ALBUMIN 1.8 g/dL (3.4-5.0); ALKALINE PHOSPHATASE 59 Units/L (46-116); ASPARTATE AMINO TRANSFERASE 26 Units/L (15-37); COR CA(FOR HYPOALB) 9.2 mg/dL (8.5-10.1)
[2021-04-20 10:05] LABS: PLATELET MORPHOLOGY COMMENT NORMAL (NORMAL)
[2021-04-20] MEDS ORDERED: SOLU-Medrol 40 MG VIAL ONE ×2 (13:21)
[2021-04-20] MEDS: K-DUR TAB 20 MEQ PO PRN (17:36)
[2021-04-20] MEDS ORDERED: MICRO K EXTEN CAP 10 MEQ PO PRN (20:15)
[2021-04-20] MEDS: MELATONIN PO SCH (20:27)
[2021-04-20] MEDS: LIPITOR TAB 80 MG PO SCH (20:27)
[2021-04-21] MEDS: ASCORBIC ACID INJ MULTI-DOSE VIAL 1,500 MG in NS 100 ML IV 100 ML IV SCH ×4 (03:30→21:15)
[2021-04-21] MEDS: NS 1,000 ML IV 1,000 ML IV SCH ×2 (04:20→14:56)
[2021-04-21] MEDS: SOLU-Medrol 125 MG VIAL IVP SCH ×3 (05:45→21:17)
[2021-04-21 06:17] LABS: BASOPHILS % (AUTO) 0.1 % (0.2-1.0); HEMATOCRIT 23.8 % (36.0-47.0); HEMOGLOBIN 8.2 g/dL (12.0-16.0); LYMPHOCYTES # (AUTO) 0.2 X10^3/uL (1.3-2.9); LYMPHOCYTES % (AUTO) 1.8 % (21.0-51.0); MEAN CORPUSCULAR HEMOGLOBIN 34.7 pg (27.0-34.0); MEAN CORPUSCULAR HGB CONC 34.3 g/dL (33.0-35.0); MEAN PLATELET VOLUME 9.4 fL (7.4-11.0); MONOCYTES # (AUTO) 0.4 x10^3/uL (0.3-0.8); NEUTROPHILS % (AUTO) 95.1 % (42.0-75.0); RED BLOOD COUNT 2.35 X10^6/uL (3.5-5.4); RED CELL DISTRIBUTION WIDTH 14.9 % (11.6-16.5); WHITE BLOOD COUNT 12.7 X10^3/uL (3.6-10.0)
[2021-04-21 06:38] LABS: ALANINE AMINOTRANSFERASE 6 Units/L (12-78); ALBUMIN 1.8 g/dL (3.4-5.0); ALKALINE PHOSPHATASE 53 Units/L (46-116); ASPARTATE AMINO TRANSFERASE 27 Units/L (15-37); BLOOD UREA NITROGEN 26 mg/dL (7-18); CALCIUM 7.5 mg/dL (8.5-10.1); CARBON DIOXIDE 21.8 mmol/L (21-32); CHLORIDE 110 mmol/L (98-107); COR CA(FOR HYPOALB) 9.3 mg/dL (8.5-10.1); COR NA(FOR HYPERGLY) 143 mmol/L (136-145); CREATININE 0.84 mg/dL (0.55-1.02); SODIUM 142 mmol/L (136-145); TOTAL PROTEIN 5.5 g/dL (6.4-8.2); eGFR NON BLACK RACES > 60 (>60)
[2021-04-21 07:15] LABS: PLATELET MORPHOLOGY COMMENT NORMAL (NORMAL)
[2021-04-21] MEDS: BROVANA IN SCH ×2 (08:43→20:05)
[2021-04-21] MEDS: PULMICORT NEB TX 0.5 MG NEB SCH ×2 (08:43→20:05)
[2021-04-21] MEDS: ROCEPHIN 1 GRAM IV PREMIX 1 G/50 ML IV.SOLN. IV SCH ×2 (09:28→09:56)
[2021-04-21] MEDS: FLONASE NASAL SPRAY ENOSTRIL SCH (09:29)
[2021-04-21] MEDS: CYTOTEC PO SCH ×4 (09:29→21:15)
[2021-04-21] MEDS: BRILINTA PO SCH ×2 (09:29→21:15)
[2021-04-21] MEDS: K-DUR TAB 20 MEQ PO SCH (09:30)
[2021-04-21] MEDS: ZINC SULFATE PO SCH ×2 (09:30→21:17)
[2021-04-21] MEDS: PAXIL PO SCH (09:31)
[2021-04-21] MEDS: PEPCID TAB 40 MG PO SCH ×2 (09:32→21:16)
[2021-04-21] MEDS: WELLBUTRIN XL 150 MG (DAILY) PO SCH (09:32)
[2021-04-21] MEDS: TOPAMAX PO SCH ×2 (09:32→21:17)
[2021-04-21] MEDS: VSL#3 PO SCH (09:33)
[2021-04-21] MEDS: THIAMINE HCL INJ IVP SCH ×2 (09:33→21:17)
[2021-04-21] MEDS: VITAMIN D3 125 mcg (5,000 UNITS) PO SCH (09:33)
[2021-04-21] MEDS: PROTONIX INJ 40 MG VIAL IVP SCH ×2 (09:34→21:16)
[2021-04-21] MEDS: K-DUR TAB 20 MEQ PO PRN (09:35)
[2021-04-21] MEDS: IVERMECTIN PO SCH (09:55)
[2021-04-21] MEDS: LOVENOX INJ 30 MG SYR SC SCH ×2 (09:55→21:16)
[2021-04-21] MEDS: VITAMIN A PO SCH (09:55)
[2021-04-21] MEDS: LIPITOR TAB 80 MG PO SCH (21:15)
[2021-04-21] MEDS: PERCOCET TAB 5/325 MG PO PRN (21:15)
[2021-04-21] MEDS: MELATONIN PO SCH (21:16)
[2021-04-22] MEDS ORDERED: CARDIZEM CD 120 MG 24-HR PO ONE
[2021-04-22] MEDS: CARDIZEM CD 120 MG 24-HR PO SCH ×2 (00:07→08:16)
[2021-04-22] MEDS: ASCORBIC ACID INJ MULTI-DOSE VIAL 1,500 MG in NS 100 ML IV 100 ML IV SCH ×2 (04:00→08:15)
[2021-04-22 05:20] LABS: BASOPHILS # (AUTO) 0.1 X10^3/uL (0.0-0.1); BASOPHILS % (AUTO) 0.7 % (0.2-1.0); HEMATOCRIT 21.9 % (36.0-47.0); HEMOGLOBIN 7.6 g/dL (12.0-16.0); LYMPHOCYTES # (AUTO) 0.1 X10^3/uL (1.3-2.9); LYMPHOCYTES % (AUTO) 1.3 % (21.0-51.0); MEAN CORPUSCULAR HEMOGLOBIN 34.9 pg (27.0-34.0); MEAN CORPUSCULAR HGB CONC 34.5 g/dL (33.0-35.0); MEAN PLATELET VOLUME 9.6 fL (7.4-11.0); MONOCYTES # (AUTO) 0.2 x10^3/uL (0.3-0.8); NEUTROPHILS # (AUTO) 9.8 x10^3/uL (2.2-4.8); RED BLOOD COUNT 2.17 X10^6/uL (3.5-5.4); RED CELL DISTRIBUTION WIDTH 15.6 % (11.6-16.5); WHITE BLOOD COUNT 10.3 X10^3/uL (3.6-10.0)
[2021-04-22] MEDS: SOLU-Medrol 125 MG VIAL IVP SCH (05:21)
[2021-04-22 05:42] LABS: ALANINE AMINOTRANSFERASE 6 Units/L (12-78); ALBUMIN 1.8 g/dL (3.4-5.0); ALKALINE PHOSPHATASE 62 Units/L (46-116); ASPARTATE AMINO TRANSFERASE 20 Units/L (15-37); BLOOD UREA NITROGEN 24 mg/dL (7-18); CALCIUM 7.2 mg/dL (8.5-10.1); CARBON DIOXIDE 21.2 mmol/L (21-32); CHLORIDE 113 mmol/L (98-107); COR NA(FOR HYPERGLY) 145 mmol/L (136-145); CREATININE 0.88 mg/dL (0.55-1.02); SODIUM 144 mmol/L (136-145); TOTAL PROTEIN 5.1 g/dL (6.4-8.2); eGFR NON BLACK RACES > 60 (>60)
[2021-04-22 06:27] LABS: ANISOCYTOSIS 1+; PLATELET MORPHOLOGY COMMENT NORMAL (NORMAL); SCHISTOCYTES PRESENT
[2021-04-22] MEDS: BRILINTA PO SCH ×2 (08:15→21:23)
[2021-04-22] MEDS: FLONASE NASAL SPRAY ENOSTRIL SCH (08:16)
[2021-04-22] MEDS: CYTOTEC PO SCH ×4 (08:16→21:23)
[2021-04-22] MEDS: K-DUR TAB 20 MEQ PO SCH (08:17)
[2021-04-22] MEDS: LOVENOX INJ 30 MG SYR SC SCH ×2 (08:17→21:24)
[2021-04-22] MEDS: IVERMECTIN PO SCH (08:17)
[2021-04-22] MEDS: PEPCID TAB 40 MG PO SCH ×2 (08:18→21:24)
[2021-04-22] MEDS: PROTONIX INJ 40 MG VIAL IVP SCH ×2 (08:18→21:24)
[2021-04-22] MEDS: PAXIL PO SCH (08:18)
[2021-04-22] MEDS: ROCEPHIN 1 GRAM IV PREMIX 1 G/50 ML IV.SOLN. IV SCH (08:18)
[2021-04-22] MEDS: THIAMINE HCL INJ IVP SCH ×2 (08:18→21:24)
[2021-04-22] MEDS: TOPAMAX PO SCH ×2 (08:19→21:25)
[2021-04-22] MEDS: VITAMIN A PO SCH (08:19)
[2021-04-22] MEDS: VITAMIN D3 125 mcg (5,000 UNITS) PO SCH (08:19)
[2021-04-22] MEDS: VSL#3 PO SCH (08:19)
[2021-04-22] MEDS: WELLBUTRIN XL 150 MG (DAILY) PO SCH (08:20)
[2021-04-22] MEDS: ZINC SULFATE PO SCH ×2 (08:20→21:25)
[2021-04-22] MEDS ORDERED: PROCRIT or EPOGEN VIAL 10,000 UNITS SC ONE (08:42)
[2021-04-22] MEDS: BROVANA IN SCH ×2 (09:24→21:38)
[2021-04-22] MEDS: PULMICORT NEB TX 0.5 MG NEB SCH ×2 (09:24→21:38)
[2021-04-22] MEDS: NS 1,000 ML IV 1,000 ML IV SCH (10:00)
[2021-04-22] MEDS: DECADRON TAB PO SCH (10:01)
[2021-04-22] MEDS: NS 1,000 ML IV 1,000 ML with ASCORBIC ACID INJ MULTI-DOSE VIAL 6,000 MG IV SCH ×2 (11:30)
[2021-04-22] MEDS: PERCOCET TAB 5/325 MG PO PRN (21:00)
[2021-04-22] MEDS: LIPITOR TAB 80 MG PO SCH (21:23)
[2021-04-22] MEDS: MELATONIN PO SCH (21:24)
[2021-04-23] MEDS: NS 1,000 ML IV 1,000 ML with ASCORBIC ACID INJ MULTI-DOSE VIAL 6,000 MG IV SCH ×4 (01:35→09:00)
[2021-04-23 05:23] LABS: BASOPHILS % (AUTO) 0.1 % (0.2-1.0); HEMATOCRIT 25.2 % (36.0-47.0); HEMOGLOBIN 8.3 g/dL (12.0-16.0); LYMPHOCYTES # (AUTO) 0.2 X10^3/uL (1.3-2.9); LYMPHOCYTES % (AUTO) 1.5 % (21.0-51.0); MEAN CORPUSCULAR HEMOGLOBIN 32.5 pg (27.0-34.0); MEAN CORPUSCULAR HGB CONC 32.8 g/dL (33.0-35.0); MEAN CORPUSCULAR VOLUME 99.3 fL (80.0-100.0); MEAN PLATELET VOLUME 10.3 fL (7.4-11.0); MONOCYTES # (AUTO) 0.3 x10^3/uL (0.3-0.8); MONOCYTES % (AUTO) 2.1 % (0.0-13.0); NEUTROPHILS # (AUTO) 11.7 x10^3/uL (2.2-4.8); NEUTROPHILS % (AUTO) 96.3 % (42.0-75.0); RED BLOOD COUNT 2.54 X10^6/uL (3.5-5.4); RED CELL DISTRIBUTION WIDTH 16.2 % (11.6-16.5); WHITE BLOOD COUNT 12.2 X10^3/uL (3.6-10.0)
[2021-04-23 05:42] LABS: ALANINE AMINOTRANSFERASE 7 Units/L (12-78); ALBUMIN 1.9 g/dL (3.4-5.0); ALKALINE PHOSPHATASE 65 Units/L (46-116); ASPARTATE AMINO TRANSFERASE 17 Units/L (15-37); BLOOD UREA NITROGEN 25 mg/dL (7-18); CALCIUM 7.5 mg/dL (8.5-10.1); CARBON DIOXIDE 20.1 mmol/L (21-32); CHLORIDE 114 mmol/L (98-107); COR CA(FOR HYPOALB) 9.2 mg/dL (8.5-10.1); COR NA(FOR HYPERGLY) 146 mmol/L (136-145); CREATININE 1.07 mg/dL (0.55-1.02); SODIUM 145 mmol/L (136-145); TOTAL PROTEIN 5.5 g/dL (6.4-8.2); eGFR NON BLACK RACES 54 (>60)
[2021-04-23 07:19] LABS: PLATELET MORPHOLOGY COMMENT NORMAL (NORMAL); SCHISTOCYTES SLIGHT
[2021-04-23] MEDS: CYTOTEC PO SCH ×2 (09:30→13:20)
[2021-04-23] MEDS: VITAMIN D3 125 mcg (5,000 UNITS) PO SCH (09:30)
[2021-04-23] MEDS: PROTONIX INJ 40 MG VIAL IVP SCH (09:30)
[2021-04-23] MEDS: PAXIL PO SCH (09:30)
[2021-04-23] MEDS: ZINC SULFATE PO SCH (09:30)
[2021-04-23] MEDS: BRILINTA PO SCH (09:30)
[2021-04-23] MEDS: ROCEPHIN 1 GRAM IV PREMIX 1 G/50 ML IV.SOLN. IV SCH (09:30)
[2021-04-23] MEDS: K-DUR TAB 20 MEQ PO SCH (09:30)
[2021-04-23] MEDS: DECADRON TAB PO SCH (09:30)
[2021-04-23] MEDS: VSL#3 PO SCH (09:30)
[2021-04-23] MEDS: WELLBUTRIN XL 150 MG (DAILY) PO SCH (09:30)
[2021-04-23] MEDS: PEPCID TAB 40 MG PO SCH (09:30)
[2021-04-23] MEDS: FLONASE NASAL SPRAY ENOSTRIL SCH (09:30)
[2021-04-23] MEDS: TOPAMAX PO SCH (09:30)
[2021-04-23] MEDS: THIAMINE HCL INJ IVP SCH (09:30)
[2021-04-23] MEDS: CARDIZEM CD 120 MG 24-HR PO SCH (09:30)
[2021-04-23] MEDS: VITAMIN A PO SCH (09:30)
[2021-04-23] MEDS: PULMICORT NEB TX 0.5 MG NEB SCH (09:35)
[2021-04-23] MEDS: BROVANA IN SCH (09:35)
[2021-04-23] MEDS: LOVENOX INJ 30 MG SYR SC SCH (10:39)
[2021-04-23] MEDS: IVERMECTIN PO SCH (10:39)
[2021-04-23 13:11] VITALS: BP 119/58
== END 2021-04-23 14:04 | disposition home or self-care (01) | DRG 177 ==
LOC: ER 16:05 → U 20:17 → ICU 04-20 16:45
PROVIDERS: ADMIT Family Medicine; ATTEND Obstetrics & Gynecology Obstetrics